=== PATIENT | female | born 1980 | race Caucasian/White ===

== ENCOUNTER 2020-08-04 15:58 | Outpatient (REF) | payer OTHER, SELFPAY | END 2020-08-04 15:59 | disposition home or self-care (01) | LOC: HO.LAB 15:58 | PROVIDERS: PCP Internal Medicine; Visit Provider Internal Medicine | DX: Z20.828 Contact with and (suspected) exposure to other viral communicable diseases (principal) | CPT/HCPCS: C9803; U0003 ==

== ENCOUNTER 2020-09-02 12:11 | Outpatient (REF) | payer OTHER, SELFPAY | END 2020-09-02 12:12 | disposition home or self-care (01) | LOC: HO.LAB 12:11 | PROVIDERS: Visit Provider Internal Medicine | DX: Z20.828 Contact with and (suspected) exposure to other viral communicable diseases (principal) | CPT/HCPCS: 36415; C9803; U0003 ==

== ENCOUNTER 2020-09-22 13:41 | Outpatient (REF) | payer OTHER, SELFPAY | END 2020-09-22 13:42 | disposition home or self-care (01) | LOC: HO.LAB 13:41 | PROVIDERS: Visit Provider Internal Medicine | DX: Z20.822 Contact with and (suspected) exposure to COVID-19 (principal) | CPT/HCPCS: 36415; C9803; U0003 ==

== ENCOUNTER 2020-10-05 14:50 | Outpatient (REF) | payer OTHER, SELFPAY ==
[2020-10-06 09:56] LABS: BV Int Neg Control Negative (Negative); BV Int Pos Control Positive (Positive)
[2020-10-06 22:37] LABS: C. trachomatis RNA TMA NOT DETECTED (NOT DETECTED); N. gonorrhoeae RNA TMA NOT DETECTED (NOT DETECTED)
== END 2020-10-05 14:51 | disposition home or self-care (01) ==
LOC: HO.LAB 14:50
PROVIDERS: PCP Internal Medicine; Visit Provider Advanced Practice Midwife
DX: Z30.433 Encounter for removal and reinsertion of intrauterine contraceptive device (principal); N76.0 Acute vaginitis
CPT/HCPCS: 36415; 58300; 58301; 87480; 87491; 87510; 87591; 87660; J7298

== ENCOUNTER 2020-10-13 09:19 | Outpatient (REF) | payer OTHER, SELFPAY ==
--- NOTE | ~2020-10-13 | XR_ITS ---
EXAMINATION: XR HIP, LEFT CLINICAL INFORMATION: Pain COMPARISON: None TECHNIQUE: Two views of the left hip. FINDINGS: Bone alignment is normal. No fracture or dislocation is seen. The joint space is normal. There is an IUD in the pelvis. Soft tissues are otherwise normal. XR/XR hip LT min 2V IMPRESSION: Normal left hip.
--- NOTE | ~2020-10-13 | XR_ITS ---
EXAMINATION: XR LUMBOSACRAL SPINE CLINICAL INFORMATION: Low back pain COMPARISON: Previous exam September 2018 TECHNIQUE: Three views of the lumbosacral spine. FINDINGS: There is curvature of the lower thoracic and upper lumbar spine to the left. Bone alignment is otherwise normal. No fracture or dislocation is seen. There may be degenerative disc disease at L5-S1. There is lower lumbar spine facet arthritis. XR/XR lumbar spine 2-3V IMPRESSION: Scoliosis. Lower lumbar spine facet arthritis and question mild degenerative disc disease at L5-S1.
--- NOTE | ~2020-10-13 | XR_ITS ---
EXAMINATION: XR SHOULDER, LEFT CLINICAL INFORMATION: Pain COMPARISON: Previous x-ray March 2019 TECHNIQUE: AP external rotation, Grashey, scapular Y, and axillary views of the left shoulder. FINDINGS: Bone alignment is normal. No fracture or dislocation is seen. The glenohumeral joint is normal. There is arthritis at the acromioclavicular joint. Soft tissues are unremarkable. XR/XR shoulder LT min 2V IMPRESSION: Arthritis at the acromioclavicular joint.
[2020-10-13 11:39] LABS: Alanine Aminotransferase 33 U/L (0-31); Albumin Level 4.3 g/dL (3.5-5.0); Alkaline Phosphatase 71 U/L (39-117); Anion Gap 11 (12-20); Aspartate Amino Transferase 25 U/L (5-31); Bilirubin Total 1.2 mg/dL (0.0-1.0); Blood Urea Nitrogen 11 mg/dL (9-16); Calcium 8.9 mg/dL (8.4-10.2); Carbon Dioxide 27 mmol/L (22-29); Chloride 103 mmol/L (96-108); Cholesterol 103 mg/dL; Estimated Glomerular Filt Rate > 60; Glucose Fasting 161 mg/dL (60-99); HDL Cholesterol 38 mg/dL; LDL Cholesterol Calculated 55 mg/dl; Potassium 4.3 mmol/L (3.3-5.1); Sodium 137 mmol/L (135-145); Total Protein 7.6 g/dL (6.5-8.0); Triglycerides 54 mg/dL
[2020-10-13 12:12] LABS: Creatinine Urine 130.28 mg/dL; Microalbum/Creatinine Ratio Ur 26.8 ug/mg cr
[2020-10-13 12:20] LABS: Estimated Average Glucose 192 mg/dL; Hemoglobin A1c % 8.3 %
[2020-10-15 00:16] LABS: C. trachomatis RNA TMA NOT DETECTED (NOT DETECTED); N. gonorrhoeae RNA TMA NOT DETECTED (NOT DETECTED)
== END 2020-10-13 09:20 | disposition home or self-care (01) ==
LOC: HO.LAB 09:19
PROVIDERS: PCP Internal Medicine; Visit Provider Internal Medicine
DX: E11.40 Type 2 diabetes mellitus with diabetic neuropathy, unspecified (principal); E78.5 Hyperlipidemia, unspecified; M25.512 Pain in left shoulder; M25.552 Pain in left hip; M54.5 Low back pain; Z11.3 Encounter for screening for infections with a predominantly sexual mode of transmission; Z11.8 Encounter for screening for other infectious and parasitic diseases
CPT/HCPCS: 36415; 72100; 73030; 73502; 80053; 80061; 82043; 83036; 87491; 87591

== ENCOUNTER 2020-12-10 15:21 | Outpatient (REF) | payer OTHER, SELFPAY | END 2020-12-10 15:22 | disposition home or self-care (01) | LOC: HO.LAB 15:21 | PROVIDERS: Visit Provider Internal Medicine | DX: Z20.822 Contact with and (suspected) exposure to COVID-19 (principal) | CPT/HCPCS: C9803; U0003; U0005 ==

== ENCOUNTER 2020-12-22 14:12 | Outpatient (REF) | payer OTHER, SELFPAY ==
[2020-12-22 14:50] LABS: COVID-19 Test Negative (Negative)
== END 2020-12-22 14:13 | disposition home or self-care (01) ==
LOC: HO.LAB 14:12
PROVIDERS: Visit Provider Internal Medicine
DX: Z20.822 Contact with and (suspected) exposure to COVID-19 (principal)
CPT/HCPCS: 36415; 87635; C9803

== ENCOUNTER → 2021-04-26 11:28 | Outpatient (BNVA) | payer OTHER, SELFPAY | PROVIDERS: PCP Internal Medicine; Visit Provider Surgery Vascular Surgery | DX: I83.11 Varicose veins of right lower extremity with inflammation (principal) | CPT/HCPCS: 99202 ==

== ENCOUNTER 2021-05-11 10:30 | Outpatient (REF) | payer OTHER, SELFPAY ==
--- NOTE | ~2021-05-11 | US_ITS ---
EXAMINATION: BILATERAL LOWER EXTREMITY VENOUS ULTRASOUND (Reflux Exam) CLINICAL INDICATION: This is a 40-year-old female with venous insufficiency and varicose veins. COMPARISON: None. TECHNIQUE: Color flow triplex imaging and compression Doppler was performed to evaluate both the deep and the superficial systems bilaterally. To evaluate the superficial system, the examination was performed in the upright position. Color-flow Doppler ultrasound and compression ultrasound were utilized. In addition, maneuvers were utilized to demonstrate reflux. FINDINGS: 1. DEEP VENOUS ULTRASOUND OF THE RIGHT LOWER EXTREMITY: Common Femoral Vein: Compressible, normal respiratory variation and augmented flow. Femoral vein: Compressible, normal color flow and augmentation. Popliteal Vein: Compressible, normal augmentation. Deep Reflux: There is no evidence of reflux in the deep system in either the common femoral vein or the popliteal vein. . There is no evidence of a Esquivel's cyst. 2. SUPERFICIAL ULTRASOUND WITH DOPPLER OF RIGHT LOWER EXTREMITY GREAT SAPHENOUS VEIN: Saphenofemoral junction: 0.9 cm Mid thigh: 0.8 cm Above knee: 0.4 cm Below knee: 0.3 cm Mid calf: 0.2 cm Ankle: 0.3 cm GSV REFLUX: No evidence of reflux. DUPLICATED GREAT SAPHENOUS VEIN: There is a 0.5 cm duplicated lateral great saphenous vein without reflux. SMALL SAPHENOUS VEIN: Upper: 0.4 cm Lower: 0.2 cm SSV REFLUX: No evidence of reflux. VEIN OF GIACOMINI: None Imaged. PERFORATORS: There is a 0.3 cm commercial or institutional cleaner in the thigh without reflux. There is a 0.2 cm calf commercial or institutional cleaner without reflux. VARICOSITIES: There are 0.3 cm proximal thigh varicose veins without reflux. 3. DEEP VENOUS ULTRASOUND OF THE LEFT LOWER EXTREMITY: Common Femoral Vein: Compressible, normal respiratory variation and augmented flow. Femoral vein: Compressible, normal color flow and augmentation. Popliteal Vein: Compressible, normal augmentation. Deep Reflux: There is no evidence of reflux in the deep system in either the common femoral vein or the popliteal vein. There is no evidence of a Esquivel's cyst. 4. SUPERFICIAL ULTRASOUND WITH DOPPLER OF LEFT LOWER EXTREMITY GREAT SAPHENOUS VEIN: Saphenofemoral junction: 0.6 cm. There is no reflux. Mid thigh: 0.3 cm Above knee: 0.4 cm. There is no reflux at this level and above. Below knee: 0.2 cm. There is an isolated area of reflux with the reflux time of 900 ms. Mid calf: 0.3 cm. There is no reflux at this level and below. Ankle: 0.2 cm GSV REFLUX: There is only a short segment of isolated reflux below the knee. There is no reflux at the junction. DUPLICATED GREAT SAPHENOUS VEIN: There is a 0.7 cm duplicated medial great saphenous vein without reflux. SMALL SAPHENOUS VEIN: Upper: 0.3 cm Lower: 0.3 cm SSV REFLUX: No evidence of reflux. VEIN OF GIACOMINI: None Imaged. PERFORATORS: None Imaged VARICOSITIES: There is a 0.2 cm distal lateral thigh varicose vein with 500 ms of reflux. US/US venous duplex LE BI IMPRESSION: 1. There are patent bilateral great saphenous veins and small saphenous veins and commercial or institutional cleaner's, respectively, without evidence of reflux. 2. There are varicose veins seen bilaterally. On the right that measures 0.3 cm. On the left they measure 0.2 cm. There is no reflux in the varicose veins on the right side.
== END 2021-05-11 10:31 | disposition home or self-care (01) ==
LOC: HO.US 10:30
PROVIDERS: PCP Internal Medicine; Visit Provider Surgery Vascular Surgery
DX: I83.11 Varicose veins of right lower extremity with inflammation (principal)
CPT/HCPCS: 93970

== ENCOUNTER → 2021-05-26 13:56 | Outpatient (BNVA) | payer OTHER, SELFPAY | PROVIDERS: PCP Internal Medicine; Visit Provider Surgery Vascular Surgery | DX: I83.11 Varicose veins of right lower extremity with inflammation (principal) | CPT/HCPCS: 99212 ==

== ENCOUNTER 2021-11-05 10:26 | Emergency (ER) | payer OTHER, SELFPAY ==
[2021-11-05 10:51] VITALS: BP 160/101; PULSE 88; RESP 17; TEMP 36.7; O2SAT 98; BMI 45.3
[2021-11-05] MEDS: Diphth,Pertus(ACell),Tet Adult 0.5 ML SYRINGE IM (11:21)
[2021-11-05] MEDS: Lidocaine HCl 2 % MPF 5 ML VIAL INFILTRATI (11:21)
--- NOTE | 2021-11-05 12:04 | ED.WOUNDLAC ---
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 Tetanus out of date/unknown. Denies injury to the area, numbness, tingling, weakness Onset (ago): hour(s) Related Data Previous Rx's Medication Instructions Recorded blood sugar diagnostic (FreeStyle 1 strip MISCELLANEOUS DAILY #50 11/12/20 Lite Strips) strip lancets 28 gauge (FreeStyle 28 gauge TOPICAL DAILY #100 cap 02/19/21 Lancets) fluticasone propionate 50 1 spray INTRANASAL DAILY 30 Days 06/13/21 mcg/actuation nasal #16 g spray,suspension blood-glucose meter (FreeStyle #1 ea 07/12/21 Lite Meter) pioglitazone 15 mg tablet 15 mg PO DAILY #90 tab 07/26/21 loratadine 10 mg tablet 10 mg PO DAILY #90 tab 08/08/21 ibuprofen 600 mg tablet 600 mg PO Q8H PRN #20 tab 11/04/21 tizanidine 2 mg tablet 2 mg PO BEDTIME PRN #7 tab 11/04/21 Allergies Allergy/AdvReac Type Severity Reaction Status Date / Time No Known Allergies Allergy Verified 11/04/21 14:51 [No Known Allergies*] Review of Systems Review of Systems: Constitutional: No Fever, No Chills ENT/Mouth: No Ear Pain, No Nasal Congestion, No sore throat, No Rhinorrhea, No Swallowing Difficulty Cardiovascular: No Chest Pain, No SOB Respiratory: No Cough Gastrointestinal: No Nausea, No Vomiting, No Diarrhea, No Constipation, No Abdominal pain Genitourinary: No Dysuria, No Urgency, No Flank Pain Musculoskeletal: No joint pain, No Myalgias, No Joint Swelling Skin: +laceration, No rash Neuro: No Weakness, No Numbness, No Paresthesias Yes all other systems are reviewed and are negative [facility] Past Medical History Attestation statement: The following information was validated with the patient. Medical History Allergic rhinitis Diabetes mellitus Left hip pain Left shoulder pain Low back pain Morbid obesity with BMI of 45.0-49.9, adult Venous (peripheral) insufficiency Surgical History History of wisdom tooth extraction Family History Family History Father Kidney disease Diabetes Hypertension Mother Hypertension Brother Hypertension Daughter In good health Son In good health Social History Social History Housing: Apartment Alcohol intake: never Patient Tobacco Use Status: Former Tobacco user Tobacco use type: Cigarette e-Cigarette/Vaping Use: Never Used Second Hand Smoke Exposure: No Advance Directives: No Advance Directives Information Provided: No Patient : No service: No Current occupational status: employed 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 Current occupational exposures/hazards: No Physical Exam Vital Signs: Vital Signs: Last Vital Signs Temp 98.0 F 11/05/21 10:51 Pulse 88 11/05/21 10:51 Resp 17 11/05/21 10:51 BP 160/101 H 11/05/21 10:51 Pulse Ox 98 11/05/21 10:51 BMI result Body Mass Index 45.3 Const: General: cooperative, healthy appearing and no acute distress Orientation/consciousness: patient oriented x3 Limitations: no limitations HENMT: Head: Yes normal to inspection Ears: hearing grossly normal bilaterally General nose exam: Normal external nose present Face and sinus: Yes normal facial exam Eyes: General: appearance normal, both eyes and all related structures EOM: EOMs intact bilaterally Neck: Neck: Yes normal visual inspection and Yes no meningeal signs Resp: Effort & Inspection: normal respiratory effort and no respiratory distress Cardio: Rate: regular rate Peripheral pulses: radial pulses present Skin: Rashes: no rashes Neuro: General: patient oriented x3, tone normal, moves all extremities and no meningeal signs Gait exam (Neuro): Normal gait present Extrem: Other: Left index finger with 2.5 cm laceration to palmar-lateral aspect of DIP. Underlying structures intact. Neurovascularly intact, sensation intact to light touch. FROM intact. 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 On exam hypertensive, NAD, physical exam as above. Will update tetanus and repair wound Plan: Suture repair Differential Diagnosis Differential diagnosis: Likely laceration Medical Records Attestation: I reviewed the patient's medical records. Lab Data Attestation: I reviewed the patient's lab results. Procedures Laceration Laceration 1: Site: hand Side (If applicable): left Size (cm): 2.5 Description: linear Depth: simple, single layer Local Anesthetic: lidocaine 1% (digital block) Amount of anesthesia used (mL): 4 Pre-repair: wound explored and irrigated extensively Skin layer closed with: nylon Size (cm): 4-0 Number of sutures: 6 Technique: simple, interrupted Discharge Plan Discharge Clinical Impression: Finger laceration Patient Disposition: Home, Self-Care Instructions: Finger Laceration (ED) Additional Instructions: Please return to any emergency department or urgent care in 7-10 days to have her stitches taken out. Follow-up with hand surgery as needed If area begins to look infected, is red, there is drainage/pus, you have fever, you develop numbness or tingling please return to the ED immediately Your tetanus was updated today Keep area dry and clean. Apply bacitracin and Neosporin all sutures are in. Once sutures are removed apply anti scar cream like Mederma Prescriptions: No Action blood sugar diagnostic [FreeStyle Lite Strips] Strip 1 strip miscellaneous DAILY Qty: 50 6RF lancets [FreeStyle Lancets] 28 gauge misc 28 gauge topical DAILY Qty: 100 6RF (DME) blood-glucose meter [FreeStyle Lite Meter] Kit See Rx Instructions .Route Qty: 1 0RF Rx Instructions: As directed pioglitazone 15 mg tablet 15 mg PO DAILY Qty: 90 3RF loratadine 10 mg tablet 10 mg PO DAILY Qty: 90 3RF fluticasone propionate 50 mcg/actuation spray,suspension 1 spray intranasal DAILY 30 Days Qty: 16 6RF Rx Instructions: administer into each nostril tizanidine 2 mg tablet 2 mg PO BEDTIME PRN (Reason: muscle spasticity) Qty: 7 0RF ibuprofen 600 mg tablet 600 mg PO Q8H PRN (Reason: pain) Qty: 20 0RF Referrals: ED Physician,Generic [Emergency Provider] - 1 week (7-10 days for suture removal) Anusha Rodrigez MD [Physician] - 1 week
== END 2021-11-05 12:43 | disposition home or self-care (01) ==
PROVIDERS: Emergency Provider Emergency Medicine; PCP Internal Medicine
DX: S61.211A Laceration without foreign body of left index finger without damage to nail, initial encounter (principal); W26.0XXA Contact with knife, initial encounter; E11.9 Type 2 diabetes mellitus without complications; Y93.G1 Activity, food preparation and clean up; Y92.030 Kitchen in apartment as the place of occurrence of the external cause; Y99.9 Unspecified external cause status
CPT/HCPCS: 12001; 90471; 90715; 99283; 99284

== ENCOUNTER → 2021-11-15 10:14 | Outpatient (BNVA) | payer OTHER, SELFPAY | PROVIDERS: PCP Internal Medicine; Visit Provider Physician Assistant | DX: S61.211D Laceration without foreign body of left index finger without damage to nail, subsequent encounter (principal) | CPT/HCPCS: 99202 ==

== ENCOUNTER 2022-01-12 09:06 | Outpatient (REF) | payer OTHER, SELFPAY ==
[2022-01-12 10:22] LABS: Alanine Aminotransferase 20 U/L (0-31); Alkaline Phosphatase 66 U/L (39-117); Anion Gap 10 (12-20); Aspartate Amino Transferase 16 U/L (5-31); Bilirubin Total 1.2 mg/dL (0.0-1.0); Blood Urea Nitrogen 13 mg/dL (9-16); Calcium 9.2 mg/dL (8.4-10.2); Carbon Dioxide 27 mmol/L (22-29); Chloride 105 mmol/L (96-108); Cholesterol 110 mg/dL; Estimated Glomerular Filt Rate > 60; Glucose Fasting 160 mg/dL (60-99); HDL Cholesterol 37 mg/dL; LDL Cholesterol Calculated 64 mg/dl; Potassium 4.6 mmol/L (3.3-5.1); Sodium 137 mmol/L (135-145); Total Protein 7.3 g/dL (6.5-8.0); Triglycerides 48 mg/dL
[2022-01-12 10:38] LABS: Creatinine Urine 96.32 mg/dL; Microalbum/Creatinine Ratio Ur 16.6 ug/mg cr
== END 2022-01-12 09:07 | disposition home or self-care (01) ==
LOC: HO.LAB 09:06
PROVIDERS: PCP Internal Medicine; Visit Provider Internal Medicine
DX: E11.9 Type 2 diabetes mellitus without complications (principal); E78.5 Hyperlipidemia, unspecified
CPT/HCPCS: 36415; 80053; 80061; 82043

== ENCOUNTER 2022-08-15 12:19 | Outpatient (REF) | payer OTHER, SELFPAY ==
[2022-08-15 13:03] LABS: IDNOW Serial# 16C4AD1C
[2022-08-15 13:04] LABS: COVID-19 Test Negative (Negative)
== END 2022-08-15 12:20 | disposition home or self-care (01) ==
LOC: HO.LAB 12:19
PROVIDERS: Visit Provider Internal Medicine
DX: Z20.822 Contact with and (suspected) exposure to COVID-19 (principal)
CPT/HCPCS: 87635; C9803

== ENCOUNTER 2022-09-18 11:58 | Emergency (ER) | payer OTHER, SELFPAY ==
[2022-09-18 12:01] VITALS: BP 150/104; PULSE 120; RESP 18; TEMP 35.8; O2SAT 97; BMI 44.9
--- NOTE | 2022-09-18 12:01 | ED.NAVMDI ---
HPI - Nausea/Vomiting/Diarrhea General Chief complaint: Abdominal Pain <SATURNINO Will - Last Filed: 09/18/22 12:05> Stated complaint: Vomiting/Diarrhea <SATURNINO Will - Last Filed: 09/18/22 12:05> Time Seen by Provider: 09/18/22 13:59 <SATURNINO Will - Last Filed: 09/18/22 12:05> Source: patient <Vannessa Hurt MD - Last Filed: 09/18/22 22:55> Mode of arrival: ambulatory <Vannessa Hurt MD - Last Filed: 09/18/22 22:55> Limitations: no limitations <Vannessa Hurt MD - Last Filed: 09/18/22 22:55> History of Present Illness HPI Narrative: Patient comes in the emergency room complaining of nausea vomiting and diarrhea since last night. Patient states that yesterday in the morning, patient took some rice. Patient states that her children were supposed to put it in the Fridge but they left that out and the counter. When patient got back from work, patient did not want to throw it away, patient he did arise and aided. 6 hours later, patient started having nausea vomiting and diarrhea, no fever or chills. Patient complaining of diffuse abdominal cramping, no localized pain. <Vannessa Hurt MD - Last Filed: 09/18/22 22:55> Related Data Home medications: Previous Rx's Medication Instructions Recorded lancets 28 gauge (FreeStyle 28 gauge topical DAILY for 02/19/21 Lancets) diabetes mellitus #100 caps fluticasone propionate 50 1 spray intranasal DAILY 30 days 06/13/21 mcg/actuation nasal #16 grams spray,suspension ibuprofen 600 mg tablet 600 mg PO Q8H PRN pain #20 tabs 11/04/21 blood sugar diagnostic (FreeStyle 1 strip miscellaneous DAILY for 12/26/21 Lite Strips) diabetes mellitus #50 strips blood-glucose meter (FreeStyle #1 ea 05/22/22 Lite Meter kit) lisinopril 5 mg tablet 5 mg PO DAILY 90 days #90 tabs 05/22/22 blood pressure monitor #1 ea 06/20/22 loratadine 10 mg tablet 10 mg PO DAILY #90 tabs 09/04/22 pioglitazone 30 mg tablet 30 mg PO DAILY 90 days #90 tabs 09/04/22 loperamide 2 mg capsule 2 mg PO Q4H PRN loose stool #14 09/18/22 caps ondansetron 4 mg disintegrating 4 mg PO Q6H PRN nausea and 09/18/22 tablet vomiting #14 tabs <SATURNINO Will - Last Filed: 09/18/22 12:05> Allergies/Adverse reactions: Allergies Allergy/AdvReac Type Severity Reaction Status Date / Time No Known Allergies Allergy Verified 09/18/22 12:03 [No Known Allergies*] <SATURNINO Will - Last Filed: 09/18/22 12:05> Review of Systems Review of Systems: Constitutional : No Weight loss, No Fever, No Chills, No Night Sweats, No Fatigue, No Malaise ENT/Mouth : No Hearing loss, No Ear Pain, No Nasal Congestion, No Sinus Pain, No Hoarseness, No sore throat, No Rhinorrhea, No Swallowing Difficulty Eyes: No Eye Pain, No Swelling, No Redness, No Foreign Body, No Discharge, No Vision Changes Cardiovascular : No Chest Pain, No SOB, No Dyspnea on Exertion, No Orthopnea, No Edema, No Palpitations Respiratory : No Cough, No Sputum, No Wheezing, No Smoke Exposure, No Dyspnea Gastrointestinal : Feeling of nausea, vomiting and diarrhea, constipation, no melena, complaining of diffuse abdominal cramping, no localized pain. Genitourinary : no irregular bleeding, No Dysuria, No Urinary Frequency, No Hematuria, No Urinary Incontinence, No Urgency, No Flank Pain, No Urinary Flow Changes, No Hesitancy Musculoskeletal : No joint pain, No Myalgias, No Joint Swelling Skin : No Skin Lesions, No rash Neuro : No Weakness, No Numbness, No Paresthesias, No Loss of Consciousness, No Dizziness, No Headache Psych : No Anxiety/Panic, No Depression, No SI/HI/AH/VH, No Social Issues, Heme/Lymph: No Bruising, No Bleeding,No Lymphadenopathy Endocrine : No Polyuria, No Polydipsia, No Temperature Intolerance <Vannessa Hurt MD - Last Filed: 09/18/22 22:55> [facility] Past Medical History Medical History: Medical History Allergic rhinitis Diabetes mellitus Left hip pain Left shoulder pain Low back pain Morbid obesity with BMI of 45.0-49.9, adult Skin tag Venous (peripheral) insufficiency <SATURNINO Will - Last Filed: 09/18/22 12:05> Surgical History: Surgical History History of wisdom tooth extraction <SATURNINO Will - Last Filed: 09/18/22 12:05> Family History Family History: Family History Father Kidney disease Diabetes Hypertension Mother Hypertension Brother Hypertension Daughter In good health Son In good health <SATURNINO Will - Last Filed: 09/18/22 12:05> Social History Social History: Social History Housing: Apartment Alcohol intake: never Patient Tobacco Use Status: Former Tobacco user Tobacco use type: Cigarette Smoked in Last 30 Days: No e-Cigarette/Vaping Use: Never Used Second Hand Smoke Exposure: No Use of substances other than those prescribed or required for medical reasons: No Advance Directives: No Advance Directives Information Provided: Yes service: No Current occupational status: employed 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 Current occupational exposures/hazards: No Cognitive needs: No Hearing needs: No Vision needs: Yes <SATURNINO Will - Last Filed: 09/18/22 12:05> Physical Exam Vital Signs: Vital Signs: Last Vital Signs Temp 98.1 F 09/18/22 14:05 Pulse 106 H 09/18/22 14:05 Resp 18 09/18/22 14:05 BP 127/83 09/18/22 14:05 Pulse Ox 96 09/18/22 14:05 O2 Del Method 09/18/22 14:05 BMI result Body Mass Index 44.9 <SATURNINO Will - Last Filed: 09/18/22 12:05> Vital Signs: Last Vital Signs Temp 98.1 F 09/18/22 14:05 Pulse 106 H 09/18/22 14:05 Resp 18 09/18/22 14:05 BP 127/83 09/18/22 14:05 Pulse Ox 96 09/18/22 14:05 O2 Del Method 09/18/22 14:05 BMI result Body Mass Index 44.9 <Vannessa Hurt MD - Last Filed: 09/18/22 22:55> Const: Other: Appearance: Alert. Oriented X3. No acute distress. Well appearing Eyes: Pupils equal, round and reactive to light. ENT: Pharynx normal. Neck: Normal inspection. Neck supple. No lymph nodes noted. No crepitus CVS: Normal heart rate and rhythm. Pulses normal. Normal S1 and S2 Respiratory: No respiratory distress. Breath sounds normal. No Wheezing. No rales Abdomen: Soft and nontender. No rigidity. No distention. Skin: Skin warm and dry. Normal skin color. Normal skin turgor. Extremities: No lower extremity edema. No Lacerations. No Rash Neuro: Oriented X 3. No motor deficit. No sensory deficit. Moving all extremities. No slurred speech. CN 2 through 12 grossly intact Psych: calm, cooperative, normal affect <Vannessa Hutr MD - Last Filed: 09/18/22 22:55> Course Course Course Narrative: RME - 42 yo female with history of HTN, DM who presents to the ER with acute onset of nausea, vomiting, multiple episodes of watery, yellow diarrhea and diffuse abdominal pain that started this morning after eating shrimp fried rice yesterday. No blood in her stool. Unable to hold anything down this morning. Will get labs, stool studies if able and treat with IVF and Zofran. <SATURNINO Will - Last Filed: 09/18/22 12:05> Medications Administered Discontinued Medications Generic Name Dose Route Start Last Admin Trade Name Leandroq PRN Reason Stop Dose Admin Sodium Chloride 1,000 mls @ 999 mls/hr 09/18/22 12:15 09/18/22 14:29 Ns IVCONT 09/18/22 13:15 999 mls/hr .Q1H1M RONNY Administration Loperamide HCl 4 mg 09/18/22 14:09 09/18/22 14:29 Loperamide Hcl 2 Mg Capsule PO 09/18/22 14:10 4 mg ONCE ONE Administration Ondansetron HCl 4 mg 09/18/22 12:02 09/18/22 14:29 Ondansetron Hcl 4 Mg/2 Ml Vial IVPUSH 09/18/22 12:03 4 mg ONCE ONE Administration <SATURNINO Will - Last Filed: 09/18/22 12:05> Medications Administered Discontinued Medications Generic Name Dose Route Start Last Admin Trade Name Danie PRN Reason Stop Dose Admin Sodium Chloride 1,000 mls @ 999 mls/hr 09/18/22 12:15 09/18/22 14:29 Ns IVCONT 09/18/22 13:15 999 mls/hr .Q1H1M RONNY Administration Loperamide HCl 4 mg 09/18/22 14:09 09/18/22 14:29 Loperamide Hcl 2 Mg Capsule PO 09/18/22 14:10 4 mg ONCE ONE Administration Ondansetron HCl 4 mg 09/18/22 12:02 09/18/22 14:29 Ondansetron Hcl 4 Mg/2 Ml Vial IVPUSH 09/18/22 12:03 4 mg ONCE ONE Administration <Vannessa Hurt MD - Last Filed: 09/18/22 22:55> Medical Decision Making Medical Decision Making MDM Narrative: -given the patient's story, patient likely has an infection with bacillus cereus, which is self-limited. Patient will likely have symptoms for approximately 24 hours and then self resolved. -patient receiving IV fluids, Zofran, loperamide -on physical exam, abdominal exam is benign, no imaging indicated at this time. <Vannessa Hurt MD - Last Filed: 09/18/22 22:55> Lab Data Result Diagrams: 09/18/22 12:11 09/18/22 12:11 <SATURNINO Will - Last Filed: 09/18/22 12:05> Labs: Lab Results 09/18/22 09/18/22 Range/Units 12:11 12:11 WBC 20.7 H (4.8-10.8) X10*3/uL RBC 5.86 H (4.20-5.50) X10*6/uL Hgb 15.4 (12.0-16.0) g/dl Hct 48.1 H (37.0-47.0) % MCV 82.1 (80.0-98.0) fL MCH 26.3 L (27.0-33.0) pg MCHC 32.0 (31.0-35.0) g/dl RDW 14.8 (11.0-16.0) % Plt Count 307 (160-400) X10*3/uL MPV 9.7 (9.4-12.3) fL Immature Gran % (Auto) 0.5 H (0.0-0.4) % Neut % (Auto) 76.6 H (45-73) % Lymph % (Auto) 12.7 L (20-40) % [place] % (Auto) 8.4 (2-11) % Eos % (Auto) 1.6 (0-4) % Baso % (Auto) 0.2 (0-2) % Lymph # (Auto) 2.6 (1.2-4.9) X10*3/uL [place] # (Auto) 1.7 H (0.1-1.2) X10*3/uL Eos # (Auto) 0.3 (0.0-0.4) X10*3/uL Baso # (Auto) 0.0 (0.0-0.2) X10*3/uL Abs Immat Gran (auto) 0.11 H (0.00-0.03) X10*3/uL Absolute Neuts (auto) 15.8 H (2.0-8.3) x10*3/uL Absolute Nucleated RBC 0.000 (0.0-0.012) X10*3/uL Nucleated RBC % (auto) 0.0 (0.0-0.2) /100WBC Smear Tech's Comments VERIFIED Sodium 138 (135-145) mmol/L Potassium 4.8 (3.3-5.1) mmol/L Chloride 108 (96-108) mmol/L Carbon Dioxide 20 L (22-29) mmol/L Anion Gap 15 (12-20) BUN 15 (9-16) mg/dL Creatinine 0.85 (0.5-1.4) mg/dL Estim Creat Clear Calc 110.4 Estimated GFR > 60 Random Glucose 188 H (60-115) mg/dL Calcium 9.7 (8.4-10.2) mg/dL Magnesium 1.8 (1.6-2.6) mg/dL Total Bilirubin 1.5 H (0.0-1.0) mg/dL Direct Bilirubin 0.5 (0.0-0.5) mg/dL AST 16 (5-31) U/L ALT 19 (0-31) U/L Alkaline Phosphatase 81 (39-117) U/L Total Protein 8.2 H (6.5-8.0) g/dL Albumin 4.6 (3.5-5.0) g/dL <SATURNINO Will - Last Filed: 09/18/22 12:05> Lab Results 09/18/22 09/18/22 Range/Units 12:11 12:11 WBC 20.7 H (4.8-10.8) X10*3/uL RBC 5.86 H (4.20-5.50) X10*6/uL Hgb 15.4 (12.0-16.0) g/dl Hct 48.1 H (37.0-47.0) % MCV 82.1 (80.0-98.0) fL MCH 26.3 L (27.0-33.0) pg MCHC 32.0 (31.0-35.0) g/dl RDW 14.8 (11.0-16.0) % Plt Count 307 (160-400) X10*3/uL MPV 9.7 (9.4-12.3) fL Immature Gran % (Auto) 0.5 H (0.0-0.4) % Neut % (Auto) 76.6 H (45-73) % Lymph % (Auto) 12.7 L (20-40) % [place] % (Auto) 8.4 (2-11) % Eos % (Auto) 1.6 (0-4) % Baso % (Auto) 0.2 (0-2) % Lymph # (Auto) 2.6 (1.2-4.9) X10*3/uL [place] # (Auto) 1.7 H (0.1-1.2) X10*3/uL Eos # (Auto) 0.3 (0.0-0.4) X10*3/uL Baso # (Auto) 0.0 (0.0-0.2) X10*3/uL Abs Immat Gran (auto) 0.11 H (0.00-0.03) X10*3/uL Absolute Neuts (auto) 15.8 H (2.0-8.3) x10*3/uL Absolute Nucleated RBC 0.000 (0.0-0.012) X10*3/uL Nucleated RBC % (auto) 0.0 (0.0-0.2) /100WBC Smear Tech's Comments VERIFIED Sodium 138 (135-145) mmol/L Potassium 4.8 (3.3-5.1) mmol/L Chloride 108 (96-108) mmol/L Carbon Dioxide 20 L (22-29) mmol/L Anion Gap 15 (12-20) BUN 15 (9-16) mg/dL Creatinine 0.85 (0.5-1.4) mg/dL Estim Creat Clear Calc 110.4 Estimated GFR > 60 Random Glucose 188 H (60-115) mg/dL Calcium 9.7 (8.4-10.2) mg/dL Magnesium 1.8 (1.6-2.6) mg/dL Total Bilirubin 1.5 H (0.0-1.0) mg/dL Direct Bilirubin 0.5 (0.0-0.5) mg/dL AST 16 (5-31) U/L ALT 19 (0-31) U/L Alkaline Phosphatase 81 (39-117) U/L Total Protein 8.2 H (6.5-8.0) g/dL Albumin 4.6 (3.5-5.0) g/dL <Vannessa Hurt MD - Last Filed: 09/18/22 22:55> Discharge Plan Discharge Clinical Impression: Bacillus cereus food poisoning <SATURNINO Will - Last Filed: 09/18/22 12:05> Patient Disposition: Home, Self-Care <SATURNINO Will - Last Filed: 09/18/22 12:05> Instructions: Acute Nausea and Vomiting (ED) <SATURNINO Will - Last Filed: 09/18/22 12:05> Additional Instructions: Please follow-up with your primary care physician tomorrow. If you have any worsening or new symptoms, please return to the emergency room or call 911 <SATURNINO Will - Last Filed: 09/18/22 12:05> Prescriptions: New ondansetron 4 mg tablet,disintegrating 4 mg PO Q6H PRN (Reason: nausea and vomiting) Qty: 14 0RF loperamide 2 mg capsule 2 mg PO Q4H PRN (Reason: loose stool) Qty: 14 0RF Rx Instructions: administer after each loose stool until symptoms controlled; do not exceed 8 mg per 24 hrs No Action lancets [FreeStyle Lancets] 28 gauge misc 28 gauge topical DAILY Qty: 100 6RF FreeStyle Lite Strips Strip 1 strip miscellaneous DAILY Qty: 50 6RF (DME) blood pressure monitor Kit See Rx Instructions .Route Qty: 1 0RF Rx Instructions: As directed loratadine 10 mg tablet 10 mg PO DAILY Qty: 90 3RF pioglitazone 30 mg tablet 30 mg PO DAILY 90 Days Qty: 90 1RF lisinopril 5 mg tablet 5 mg PO DAILY 90 Days Qty: 90 1RF (DME) blood-glucose meter [FreeStyle Lite Meter] Kit See Rx Instructions .Route Qty: 1 0RF Rx Instructions: As directed fluticasone propionate 50 mcg/actuation spray,suspension 1 spray intranasal DAILY 30 Days Qty: 16 6RF Rx Instructions: administer into each nostril ibuprofen 600 mg tablet 600 mg PO Q8H PRN (Reason: pain) Qty: 20 0RF <SATURNINO Will - Last Filed: 09/18/22 12:05> Stand Alone Forms: Work/School Release <SATURNINO Will - Last Filed: 09/18/22 12:05> Interventions: ED Discharge Assessment Last Done: 09/18/22 16:24 <SATURNINO Will - Last Filed: 09/18/22 12:05> Discharge Date/Time: 09/18/22 16:25 <SATURNINO Will - Last Filed: 09/18/22 12:05>
[2022-09-18 12:20] LABS: Basophils Percent Auto 0.2 % (0-2); Eosinophils Absolute Auto 0.3 X10*3/uL (0.0-0.4); Eosinophils Percent Auto 1.6 % (0-4); Hematocrit 48.1 % (37.0-47.0); Hemoglobin 15.4 g/dl (12.0-16.0); Imm Gran Abs Auto 0.11 X10*3/uL (0.00-0.03); Imm Gran Pct Auto 0.5 % (0.0-0.4); Lymphocytes Absolute Auto 2.6 X10*3/uL (1.2-4.9); Lymphocytes Percent Auto 12.7 % (20-40); MANUAL DIFF FLAG SCAN; Mean Corpuscular Hemoglobin 26.3 pg (27.0-33.0); Mean Corpuscular Volume 82.1 fL (80.0-98.0); Mean Platelet Volume 9.7 fL (9.4-12.3); Monocytes Absolute Auto 1.7 X10*3/uL (0.1-1.2); Monocytes Percent Auto 8.4 % (2-11); Neutrophils Absolute Auto 15.8 x10*3/uL (2.0-8.3); Neutrophils Percent Auto 76.6 % (45-73); Platelet Count 307 X10*3/uL (160-400); Red Blood Count 5.86 X10*6/uL (4.20-5.50); Red Cell Distribution Width 14.8 % (11.0-16.0); SCAN SMEAR FLAG 1; White Blood Count 20.7 X10*3/uL (4.8-10.8)
[2022-09-18 12:40] LABS: SLIDE REVIEW VERIFIED
[2022-09-18 12:45] LABS: Alanine Aminotransferase 19 U/L (0-31); Albumin Level 4.6 g/dL (3.5-5.0); Alkaline Phosphatase 81 U/L (39-117); Anion Gap 15 (12-20); Aspartate Amino Transferase 16 U/L (5-31); Bilirubin Direct 0.5 mg/dL (0.0-0.5); Bilirubin Total 1.5 mg/dL (0.0-1.0); Blood Urea Nitrogen 15 mg/dL (9-16); Calcium 9.7 mg/dL (8.4-10.2); Carbon Dioxide 20 mmol/L (22-29); Chloride 108 mmol/L (96-108); Creatinine Clr Calc Pharmacy 110.4; Estimated Glomerular Filt Rate > 60; Glucose Random 188 mg/dL (60-115); Magnesium 1.8 mg/dL (1.6-2.6); Potassium 4.8 mmol/L (3.3-5.1); Sodium 138 mmol/L (135-145); Total Protein 8.2 g/dL (6.5-8.0)
[2022-09-18 14:05] VITALS: BP 127/83; PULSE 106; RESP 18; TEMP 36.7; O2SAT 96
--- NOTE | 2022-09-18 14:09 | ED_ITS ---
HPI - Abdominal Pain General Chief Complaint: Abdominal Pain Stated Complaint: Vomiting/Diarrhea Time Seen by Provider: 09/18/22 13:59 Related Data Previous Rx's Medication Instructions Recorded lancets 28 gauge (FreeStyle 28 gauge topical DAILY for 02/19/21 Lancets) diabetes mellitus #100 caps fluticasone propionate 50 1 spray intranasal DAILY 30 days 06/13/21 mcg/actuation nasal #16 grams spray,suspension ibuprofen 600 mg tablet 600 mg PO Q8H PRN pain #20 tabs 11/04/21 blood sugar diagnostic (FreeStyle 1 strip miscellaneous DAILY for 12/26/21 Lite Strips) diabetes mellitus #50 strips blood-glucose meter (FreeStyle #1 ea 05/22/22 Lite Meter kit) lisinopril 5 mg tablet 5 mg PO DAILY 90 days #90 tabs 05/22/22 blood pressure monitor #1 ea 06/20/22 loratadine 10 mg tablet 10 mg PO DAILY #90 tabs 09/04/22 pioglitazone 30 mg tablet 30 mg PO DAILY 90 days #90 tabs 09/04/22 loperamide 2 mg capsule 2 mg PO Q4H PRN loose stool #14 09/18/22 caps ondansetron 4 mg disintegrating 4 mg PO Q6H PRN nausea and 09/18/22 tablet vomiting #14 tabs Allergies Allergy/AdvReac Type Severity Reaction Status Date / Time No Known Allergies Allergy Verified 09/18/22 12:03 [No Known Allergies*] [facility] Past Medical History Medical History Allergic rhinitis Diabetes mellitus Left hip pain Left shoulder pain Low back pain Morbid obesity with BMI of 45.0-49.9, adult Skin tag Venous (peripheral) insufficiency Surgical History History of wisdom tooth extraction Family History Family History Father Kidney disease Diabetes Hypertension Mother Hypertension Brother Hypertension Daughter In good health Son In good health Social History Social History Housing: Apartment Alcohol intake: never Patient Tobacco Use Status: Former Tobacco user Tobacco use type: Cigarette Smoked in Last 30 Days: No e-Cigarette/Vaping Use: Never Used Second Hand Smoke Exposure: No Use of substances other than those prescribed or required for medical reasons: No Advance Directives: No Advance Directives Information Provided: Yes service: No Current occupational status: employed 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 Patient has not had any episodes of nausea vomiting or abdominal cramping. -patient was p.o. challenged and tolerated well p.o.. No abdominal pain or vomiting. -physical exam prior to discharge: No abdominal pain on palpation, patient well appearing -discussed with the patient that this infection is self-limited, no antibiotics indicated. Lab Data 09/18/22 12:11 09/18/22 12:11 Labs: Lab Results 09/18/22 09/18/22 Range/Units 12:11 12:11 WBC 20.7 H (4.8-10.8) X10*3/uL RBC 5.86 H (4.20-5.50) X10*6/uL Hgb 15.4 (12.0-16.0) g/dl Hct 48.1 H (37.0-47.0) % MCV 82.1 (80.0-98.0) fL MCH 26.3 L (27.0-33.0) pg MCHC 32.0 (31.0-35.0) g/dl RDW 14.8 (11.0-16.0) % Plt Count 307 (160-400) X10*3/uL MPV 9.7 (9.4-12.3) fL Immature Gran % (Auto) 0.5 H (0.0-0.4) % Neut % (Auto) 76.6 H (45-73) % Lymph % (Auto) 12.7 L (20-40) % [place] % (Auto) 8.4 (2-11) % Eos % (Auto) 1.6 (0-4) % Baso % (Auto) 0.2 (0-2) % Lymph # (Auto) 2.6 (1.2-4.9) X10*3/uL [place] # (Auto) 1.7 H (0.1-1.2) X10*3/uL Eos # (Auto) 0.3 (0.0-0.4) X10*3/uL Baso # (Auto) 0.0 (0.0-0.2) X10*3/uL Abs Immat Gran (auto) 0.11 H (0.00-0.03) X10*3/uL Absolute Neuts (auto) 15.8 H (2.0-8.3) x10*3/uL Absolute Nucleated RBC 0.000 (0.0-0.012) X10*3/uL Nucleated RBC % (auto) 0.0 (0.0-0.2) /100WBC Smear Tech's Comments VERIFIED Sodium 138 (135-145) mmol/L Potassium 4.8 (3.3-5.1) mmol/L Chloride 108 (96-108) mmol/L Carbon Dioxide 20 L (22-29) mmol/L Anion Gap 15 (12-20) BUN 15 (9-16) mg/dL Creatinine 0.85 (0.5-1.4) mg/dL Estim Creat Clear Calc 110.4 Estimated GFR > 60 Random Glucose 188 H (60-115) mg/dL Calcium 9.7 (8.4-10.2) mg/dL Magnesium 1.8 (1.6-2.6) mg/dL Total Bilirubin 1.5 H (0.0-1.0) mg/dL Direct Bilirubin 0.5 (0.0-0.5) mg/dL AST 16 (5-31) U/L ALT 19 (0-31) U/L Alkaline Phosphatase 81 (39-117) U/L Total Protein 8.2 H (6.5-8.0) g/dL Albumin 4.6 (3.5-5.0) g/dL Medications Administered Discontinued Medications Generic Name Dose Route Start Last Admin Trade Name Freq PRN Reason Stop Dose Admin Sodium Chloride 1,000 mls @ 999 mls/hr 09/18/22 12:15 09/18/22 14:29 Ns IVCONT 09/18/22 13:15 999 mls/hr .Q1H1M RONNY Administration Loperamide HCl 4 mg 09/18/22 14:09 09/18/22 14:29 Loperamide Hcl 2 Mg Capsule PO 09/18/22 14:10 4 mg ONCE ONE Administration Ondansetron HCl 4 mg 09/18/22 12:02 09/18/22 14:29 Ondansetron Hcl 4 Mg/2 Ml Vial IVPUSH 09/18/22 12:03 4 mg ONCE ONE Administration Discharge Plan Discharge Clinical Impression: Bacillus cereus food poisoning Patient Disposition: Home, Self-Care Instructions: Acute Nausea and Vomiting (ED) Additional Instructions: Please follow-up with your primary care physician tomorrow. If you have any worsening or new symptoms, please return to the emergency room or call 911 Prescriptions: New ondansetron 4 mg tablet,disintegrating 4 mg PO Q6H PRN (Reason: nausea and vomiting) Qty: 14 0RF loperamide 2 mg capsule 2 mg PO Q4H PRN (Reason: loose stool) Qty: 14 0RF Rx Instructions: administer after each loose stool until symptoms controlled; do not exceed 8 mg per 24 hrs No Action lancets [FreeStyle Lancets] 28 gauge misc 28 gauge topical DAILY Qty: 100 6RF FreeStyle Lite Strips Strip 1 strip miscellaneous DAILY Qty: 50 6RF (DME) blood pressure monitor Kit See Rx Instructions .Route Qty: 1 0RF Rx Instructions: As directed loratadine 10 mg tablet 10 mg PO DAILY Qty: 90 3RF pioglitazone 30 mg tablet 30 mg PO DAILY 90 Days Qty: 90 1RF lisinopril 5 mg tablet 5 mg PO DAILY 90 Days Qty: 90 1RF (DME) blood-glucose meter [FreeStyle Lite Meter] Kit See Rx Instructions .Route Qty: 1 0RF Rx Instructions: As directed fluticasone propionate 50 mcg/actuation spray,suspension 1 spray intranasal DAILY 30 Days Qty: 16 6RF Rx Instructions: administer into each nostril ibuprofen 600 mg tablet 600 mg PO Q8H PRN (Reason: pain) Qty: 20 0RF
[2022-09-18] MEDS: ondansetron HCL 4 MG/2 ML VIAL IVPUSH (14:29)
[2022-09-18] MEDS: 0.9 % Sodium Chloride 1,000 ML 999 ML IVCONT (14:29)
[2022-09-18] MEDS: Loperamide HCl 2 MG CAPSULE 4 MG PO (14:29)
== END 2022-09-18 16:25 | disposition home or self-care (01) ==
PROVIDERS: Physician Assistant; Emergency Provider Emergency Medicine; PCP Internal Medicine
DX: A05.4 Foodborne Bacillus cereus intoxication (principal); E11.9 Type 2 diabetes mellitus without complications; E66.01 Morbid (severe) obesity due to excess calories; Z68.41 Body mass index [BMI] 40.0-44.9, adult; Z87.891 Personal history of nicotine dependence; Z79.899 Other long term (current) drug therapy
CPT/HCPCS: 36415; 80048; 80076; 83735; 85025; 96374; 99284; J2405

== ENCOUNTER 2023-01-24 10:59 | Outpatient (REF) | payer OTHER, SELFPAY ==
[2023-01-24 11:16] LABS: MANUAL DIFF FLAG NO
[2023-01-24 12:59] LABS: Basophils Percent Auto 0.4 % (0-2); Eosinophils Absolute Auto 0.3 X10*3/uL (0.0-0.4); Eosinophils Percent Auto 3.2 % (0-4); Hematocrit 43.8 % (37.0-47.0); Hemoglobin 13.6 g/dl (12.0-16.0); Imm Gran Abs Auto 0.04 X10*3/uL (0.00-0.03); Imm Gran Pct Auto 0.4 % (0.0-0.4); Lymphocytes Percent Auto 33.2 % (20-40); Mean Corpuscular HGB Conc 31.1 g/dl (31.0-35.0); Mean Corpuscular Hemoglobin 25.7 pg (27.0-33.0); Mean Corpuscular Volume 82.8 fL (80.0-98.0); Mean Platelet Volume 10.2 fL (9.4-12.3); Monocytes Absolute Auto 0.8 X10*3/uL (0.1-1.2); Monocytes Percent Auto 8.9 % (2-11); Neutrophils Absolute Auto 4.9 x10*3/uL (2.0-8.3); Neutrophils Percent Auto 53.9 % (45-73); Platelet Count 287 X10*3/uL (160-400); Red Blood Count 5.29 X10*6/uL (4.20-5.50); Red Cell Distribution Width 14.9 % (11.0-16.0); White Blood Count 9.1 X10*3/uL (4.8-10.8)
[2023-01-24 13:39] LABS: Microalbum/Creatinine Ratio Ur 7.7 ug/mg cr
[2023-01-24 13:42] LABS: Alanine Aminotransferase 17 U/L (0-31); Albumin Level 4.1 g/dL (3.5-5.0); Alkaline Phosphatase 68 U/L (39-117); Anion Gap 13 (12-20); Aspartate Amino Transferase 16 U/L (5-31); Bilirubin Total 1.4 mg/dL (0.0-1.0); Blood Urea Nitrogen 14 mg/dL (9-16); Calcium 9.3 mg/dL (8.4-10.2); Carbon Dioxide 26 mmol/L (22-29); Chloride 104 mmol/L (96-108); Cholesterol 110 mg/dL; Estimated Glomerular Filt Rate > 60; Glucose Fasting 128 mg/dL (60-99); HDL Cholesterol 38 mg/dL; LDL Cholesterol Calculated 62 mg/dl; Potassium 4.8 mmol/L (3.3-5.1); Sodium 138 mmol/L (135-145); Total Protein 7.5 g/dL (6.5-8.0); Triglycerides 53 mg/dL
[2023-01-24 13:47] LABS: TSH reflex Free T4 1.73 uIU/mL (0.32-4.0)
[2023-01-24 14:03] LABS: Folate 10.3 ng/mL (> or = 4.0); Vitamin B12 473 pg/mL (200-900)
== END 2023-01-24 11:00 | disposition home or self-care (01) ==
LOC: HO.LAB 10:59
PROVIDERS: PCP Internal Medicine; Visit Provider Nurse Practitioner Family
DX: E78.5 Hyperlipidemia, unspecified (principal); E11.9 Type 2 diabetes mellitus without complications
CPT/HCPCS: 36415; 80053; 80061; 82043; 82306; 82607; 82746; 84443; 85025

== ENCOUNTER 2023-01-29 09:26 | Outpatient (REF) | payer OTHER, SELFPAY ==
--- NOTE | ~2023-01-29 | MM_ITS ---
EXAMINATION: MM SCREENING DIGITAL BREAST TOMOSYNTHESIS, BILATERAL CLINICAL INFORMATION: Screening. Asymptomatic. No prior breast imaging. Age 42. The lifetime risk of breast cancer based on the Tyrer-Cuzick Model is 12%. COMPARISON: None (current study represents initial baseline exam). TECHNIQUE: Digital breast tomosynthesis is performed in both the craniocaudal and mediolateral oblique views along with computer-aided detection (CAD). Synthesized 2D images are generated from the tomosynthesis. Additional left MLO view is provided. FINDINGS: There are scattered areas of fibroglandular density (ACR BI-RADS breast composition Category b). There are no significant masses, abnormal calcifications, or other abnormalities. No architectural abnormality. The axilla and skin contours are unremarkable. MM/MM tomosynthesis screening BI IMPRESSION: No mammographic evidence of malignancy. ASSESSMENT: BI-RADS 1: Negative RECOMMENDATION: Routine annual mammography screening. This patient's information was entered into a reminder system with a target due date for their next mammogram.
== END 2023-01-29 09:27 | disposition home or self-care (01) ==
LOC: HO.MAMMO 09:26
PROVIDERS: PCP Internal Medicine; Visit Provider Internal Medicine
DX: Z12.31 Encounter for screening mammogram for malignant neoplasm of breast (principal)
CPT/HCPCS: 77063; 77067

== ENCOUNTER 2023-06-25 13:52 | Outpatient (AMB) | payer OTHER, SELFPAY ==
--- NOTE | 2023-06-25 13:55 | A.OFFPC_ITS ---
Vital Signs 06/25/23 13:56 Height 5 ft 4 in Weight 269 lb BMI 46.2 BP 134/86 Blood Pressure Location Lt brachial Position Sitting Pulse 83 Pulse Source Pulse Oximeter Pulse Oximetry (%) 97 Oxygen Delivery Method Room Air Intake Visit Reasons: 4M Follow up on DM Intake Note: Patient here for a 4 month folow up DM Insulation Nozzleman Required: No Accompanied by: Self / Same As Patient Allergies No Known Allergies [No Known Allergies*] Allergy (Verified 06/25/23 14:03) Tobacco use date assessed: 01/24/23 Dental Screening Dental Screen Date: 06/25/23 Did you have a dental visit in the last 12 months?: Yes Did you have a dental problem in the last 6 months where you did not have access to dental care?: No Was dental information given to patient?: Patient has dentist HPI HPI Comments History of Present Illness Details 42-year-old female past medical history significant for diabetes mellitus, obesity, low vitamin-D level, left shoulder and left pain and low back pain. Patient Dr. Ratliff presents today for follow-up visit. Hemoglobin A1c 6.7%. Patient continues to report left hip, left shoulder pain and low back pain as well as knee pain discussed trailing diclofenac cream for pain. Patient agreeable prescription sent to patient's pharmacy. discussed fasting lab works however patient reports she does like needles and usually gets labs at her annual exam. Labs deferred at this time. [facility] Medical History Allergic rhinitis Diabetes mellitus Left hip pain Left shoulder pain Low back pain Morbid obesity with BMI of 45.0-49.9, adult Skin tag Venous (peripheral) insufficiency Surgical History History of wisdom tooth extraction Family History Father Kidney disease Diabetes Hypertension Mother Hypertension Brother Hypertension Daughter In good health Son In good health Social History Housing: Apartment Alcohol intake: never Patient Tobacco Use Status: Former Tobacco user Tobacco use type: Cigarette e-Cigarette/Vaping Use: Never Used Second Hand Smoke Exposure: No service: No Current occupational status: employed 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 Jose A Kee, Flora Valdez, Ifeanyi Zamorano and colleagues, with an educational james from [employer]. Review of Systems Const Denies chills, Denies fatigue, Denies fever(s) and Denies poor appetite Eyes Denies no additional complaints ENT Reports Normal hearing present Card Denies chest pain, Denies syncope, Denies rapid heart rate and Denies dyspnea Resp Denies cough and Denies dyspnea GI Denies change in stool character, Denies constipation, Denies diarrhea, Denies nausea and Denies vomiting Denies urinary frequency, Denies dysuria and Denies urinary urgency Neuro Reports Normal hearing present, Denies confusion and Denies syncope Psych Denies confusion Endo Denies fatigue Physical exam (Primary Care) Vital Signs: Last Vital Signs Pulse 83 06/25/23 13:56 BP 134/86 06/25/23 13:56 Pulse Ox 97 06/25/23 13:56 Oxygen Delivery Method Room Air 06/25/23 13:56 BMI result Body Mass Index 46.2 Tobacco/Smoking Status: Tobacco use Status Tobacco use date assessed 01/24/23 06/25/23 14:04 Patient Tobacco Use Status Former Tobacco user 06/25/23 14:04 Tobacco use type Cigarette 06/25/23 14:04 e-Cigarette/Vaping Use Never Used 06/25/23 14:04 Thrive Assessment: Date of Thrive Assessment Date Thrive assessed 01/24/23 06/25/23 14:04 Const General: No confusion Orientation/consciousness: No confusion HENMT Head: Yes normocephalic and Yes atraumatic Eyes Conjunctivae: conjunctivae normal Chest Chest palpation & inspection: normal inspection of the chest Resp Effort & Inspection: normal respiratory effort Auscultation: clear to auscultation bilaterally, no crackles, no rhonchi and no wheezes Cardio Rate: regular rate Rhythm: regular rhythm Heart sounds: S1 normal heart sound present and S2 normal heart sound present GI Inspection: Yes normal to inspection Neuro General: No confusion Cranial nerves: Yes Normal hearing present Extrem General: No edema Office Procedures Flu Questionnaire Does the patient have a severe egg allergy?: No Has the patient ever had any past reaction to a flu shot?: Yes Results AMB Hemoglobin A1c AMB Hemoglobin A1c 6.7 % Last Edit by SHAJI Garcia on 06/25/23 14:0 9 Immunizations flu vacc [id number] 6mos up(PF) 60 mcg(15 mcgx4)/0.5 mL IM syringe Performing Provider: KAMAR Elias [facility] [facility] [place] [facility] Documented (not given) by: SHAJI Garcia on 06/25/23 14:07 Reason Not Given: Patient Refused Results Reviewed Results Reviewed: Laboratory Last Values Hgb A1c (Clinic) 6.7 % (4.0-6.0) H 06/25/23 13:55 Assessment and Plan Assessment & Plan (1) Diabetes mellitus: Code(s): E11.9 - Type 2 diabetes mellitus without complications Qualifiers: Diabetes mellitus complication status: without complication Diabetes mellitus exterminator helper termite insulin use: without exterminator helper termite use Diabetes mellitus type: type 2 Qualified Code(s): E11.9 - Type 2 diabetes mellitus without com plications Plan: Hemoglobin A1c 6.7%. Continue on Actos Patient educated to decrease the amount of carbohydrate intake such as pasta, bread, rice and potatoes are all sugar in addition to the sweet stuff. Remember that fruits are good but they also have sugar. (2) Low vitamin D level: Code(s): R79.89 - Other specified abnormal findings of blood chemistry Plan: Continue on vitamin-D 3. (3) Left shoulder pain: Code(s): M25.512 - Pain in left shoulder Qualifiers: Chronicity: unspecified Qualified Code(s): M25.512 - Pain in left shoulder Plan: Diclofenac cream sent to patient's pharmacy. (4) Essential hypertension: Code(s): I10 - Essential (primary) hypertension Plan: Continue on lisinopril 5 mg daily. Blood pressure goal less than 140/90. Follow low-salt diet and exercise. Plan Follow-up in 6 months. Orders: Orders AMB Hemoglobin A1c 06/25/23 E11.9 - Type 2 diabetes mellitus without complications Influenza [id number] Immunization 10/30/23 Z23 - Encounter for immunization Medications: New diclofenac sodium 1% (Arthritis Pain (diclofenac)) apply to single elbow, wrist or hand; for hand includes palm/fingers/back of hand 2 grams topical QID 100 grams 0RF Coding Level of Care Code Est Pt Level 4 (74048) Diagnoses Type 2 diabetes mellitus without complication, without long-term current use of insulin E11.9 Diabetes mellitus complication status: without complication Diabetes mellitus custodial insulin use: without custodial use Diabetes mellitus type: type 2 Low vitamin D level R79.89 Left shoulder pain, unspecified chronicity M25.512 Chronicity: unspecified Essential hypertension I10
[2023-06-25 13:56] VITALS: BP 134/86; PULSE 83; O2SAT 97; BMI 46.2
== END 2023-06-25 14:18 | disposition home or self-care (01) ==
PROVIDERS: PCP Internal Medicine; Visit Provider Nurse Practitioner Family
DX: E11.9 Type 2 diabetes mellitus without complications (principal)
CPT/HCPCS: 83036; 99214

== ENCOUNTER 2024-01-23 14:50 | Outpatient (AMB) | payer OTHER, SELFPAY ==
--- NOTE | 2024-01-23 15:02 | A.OFFPC_ITS ---
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 Required: No Accompanied by: Self / Same As Patient Allergies No Known Allergies [No Known Allergies*] Allergy (Verified 01/23/24 15:26) Medication List - Last Reconciled 01/23/24 by Virginie Dela Cruz MD blood pressure monitor As directed blood sugar diagnostic (FreeStyle Lite Strips) 1 strip miscellaneous DAILY blood-glucose meter (FreeStyle Lite Meter kit) As directed cholecalciferol (vitamin D3) 50 mcg PO DAILY lancets (FreeStyle Lancets) 28 gauge topical DAILY lisinopril 5 mg PO DAILY 90 days loratadine 10 mg PO DAILY pioglitazone 30 mg PO DAILY 90 days Tobacco use date assessed: 01/23/24 Dental Screening Dental Screen Date: 01/23/24 Did you have a dental visit in the last 12 months?: Yes Did you have a dental problem in the last 6 months where you did not have access to dental care?: No Was dental information given to patient?: Patient has dentist HPI HPI Comments History of Present Illness Details This is a 43-year-old female with diabetes mellitus type 2, hypertension, morbid obesity and low vitamin-D comes today for follow-up on her conditions. A1c elevated and I will add Ozempic. I will also increase Actos from 30 mg to 45 mg. She tried metformin and gave her diarrhea. Blood pressure borderline normal to elevated and blood pressure will be recheck in 3 weeks by nurse navigator. I will increase lisinopril from 5 mg to 10 mg. She is mo rbidly obese with a BMI of 49.1 and was advised to do diet and exercise to reach BMI goal less than 30. Not interested in weight loss surgery at the moment. On vitamin-D supplements for her low vitamin-D. [facility] Medical History Skin tag Allergic rhinitis Morbid obesity with BMI of 45.0-49.9, adult Venous (peripheral) insufficiency Low back pain Left hip pain Left shoulder pain Diabetes mellitus Surgical History History of wisdom tooth extraction Family History Father Kidney disease Diabetes Hypertension Mother Hypertension Brother Hypertension Daughter In good health Son In good health Social History Housing: Apartment Alcohol intake: never Patient Tobacco Use Status: Former Tobacco user Tobacco use type: Cigarette e-Cigarette/Vaping Use: Never Used Second Hand Smoke Exposure: No service: No Current occupational status: employed 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 1. Little interest or pleasure in doing things: not at all 2. Feeling down, depressed, or hopeless: not at all 3. Trouble falling or staying asleep, or sleeping too much: not at all 4. Feeling tired or having little energy: not at all 5. Poor appetite or overeating: not at all 6. Feeling bad about yourself - or that you are a failure or have let yourself or your family down: not at all 7. Trouble concentrating on things, such as reading the newspaper or watching television: not at all 8. Moving or speaking so slowly that other people could have noticed. Or the opposite - being so fidgety or restless that you have been moving around a lot more than usual: not at all 9. Thoughts that you would be better off or of hurting yourself in some way: not at all Total score: 0 Depression Screening Interpretation: Negative Depression Screening Done: Yes 14806 - PHQ-9 Billing: Yes Source: Developed by Drs. Jose A Kee, Flora Valdez, Ifeanyi Zamorano and colleagues, with an educational james from [employer]. Thrive Questionnaire Date Thrive assessed: 01/23/24 I am a: Patient What is your living situation today?: I have a steady place to live Within the past 12 months, did the food you bought not last and you didn't have the money to get more?: Never true Within the past 12 months, did you worry whether your food would run out before you got money to buy more?: Never true Do you have trouble paying for medicines?: No Do you have trouble getting transportation to medical appointments?: No Do you have trouble paying your heating and electricity bill?: No Do you have trouble taking care of your child, family member or friend?: No Do you have trouble with day-to-day activities such as bathing, preparing meals, shopping, managing finances, etc.?: No Are you currently unemployed and looking for a job?: No Are you interested in more education?: No Please select the resources that you would like help with: None Currently or been in a relationship where the following occur: no concerns reported THRIVE Score: 0 AUDIT C Alcohol Use Questionnaire (AUDIT-C) 1. How often do you have a drink containing alcohol?: Never Total Score: 0 MELISSA-7 AMB Questionnaire MELISSA-7 Date MELISSA - 7 assessed: 01/23/24 Feeling nervous, anxious, or on edge: 0 = Not at all Not being able to stop or control worryin = Not at all Worrying too much about different things: 0 = Not at all Trouble relaxin = Not at all Being so restless that it is hard to sit still: 0 = Not at all Becoming easily annoyed or irritable: 0 = Not at all Feeling afraid as if something awful might happen: 0 = Not at all Total MELISSA-7 score (0-4 normal; 5-9 mild; 10-14 moderate; 15-21 severe): 0 Source: Developed by Drs. Jose A Kee, Flora Valdez, Ifeanyi Zamorano and colleagues, with an educational james from [employer]. MELISSA-7 Assessment Billing MELISSA-7 Assessment Tool: MELISSA-7 Assessment 28866 Review of Systems Const All systems reviewed & are unremarkable except as noted in HPI and below Card Denies chest pain at rest, Denies chest pain with activity, Denies edema, Denies irregular heart rhythm, Denies claudication, Denies dyspnea, Denies dyspnea on exertion, Denies orthopnea, Denies paroxysmal nocturnal dyspnea and Denies slow heart rate Resp Denies cough, Denies dyspnea and Denies dyspnea on exertion Physical exam (Primary Care) Vital Signs: Last Vital Signs BP 140/90 H 01/23/24 15:03 BMI result Body Mass Index 49.1 BMI Assessment/Plan discussion: High BMI High, discussed plan: lifestyle, weight reduction, dietary and physical activity Tobacco/Smoking Status: Tobacco use Status Tobacco use date assessed 01/23/24 01/23/24 15:13 Patient Tobacco Use Status Former Tobacco user 01/23/24 15:13 Tobacco use type Cigarette 01/23/24 15:13 e-Cigarette/Vaping Use Never Used 01/23/24 15:13 PHQ-9: PHQ-9 Score PHQ-9: Total score 0 01/23/24 15:29 Depression Screening Interpretation: Negative Thrive Assessment: Date of Thrive Assessment Date Thrive assessed 01/23/24 01/23/24 15:13 Currently or been in a relationship where the following occur: no concerns reported Resp Effort & Inspection: normal respiratory effort Auscultation: clear to auscultation bilaterally Cardio Jugular venous distension: no JVD Rate: regular rate Rhythm: regular rhythm Heart sounds: S1 normal heart sound present and S2 normal heart sound present Extrem General: Yes full ROM Results AMB Hemoglobin A1c AMB Hemoglobin A1c 8.4 % Last Edit by SHAJI Garcia on 01/23/24 15:1 4 Results Reviewed Results Reviewed: Laboratory Last Values Hgb A1c (Clinic) 8.4 % (4.0-6.0) H 01/23/24 15:02 Assessment and Plan Assessment & Plan (1) Diabetes mellitus: Code(s): E11.9 - Type 2 diabetes mellitus without complications Qualifiers: Diabetes mellitus type: type 2 Diabetes mellitus terminal clerk insulin use: without senior living use Diabetes mellitus complication status: without complication Qualified Code(s): E11.9 - Type 2 diabetes mellitus without complications Plan: Increase Actos to 45 mg. Start Ozempic. A1c goal is equal or less than 7%. (2) Morbid obesity with BMI of 45.0-49.9, adult: Code(s): E66.01 - Morbid (severe) obesity due to excess calories; Z68.42 - Body mass index [BMI] 45.0-49.9, adult Plan: Start diet and exercise. BMI goal is less than 30. (3) Essential hypertension: Code(s): I10 - Essential (primary) hypertension Plan: Increase lisinopril from 5 mg to 10 mg. Blood pressure goal is equal or less than 130/80. (4) Low vitamin D level: Code(s): R79.89 - Other specified abnormal findings of blood chemistry Plan: Continue vitamin-D supplements. Orders: Orders Microalbumin, Random (w Creat) Today E11.9 - Type 2 diabetes mellitus without complications Vitamin D 25-OH Total Today E55.9 - Vitamin D deficiency, unspecified AMB Hemoglobin A1c Today E11.9 - Type 2 diabetes mellitus without complications Lipid Panel Today E78.5 - Hyperlipidemia, unspecified Comprehensive [place]. Panel Fast Today E11.9 - Type 2 diabetes mellitus without complications Medications: New lisinopril 10 mg PO DAILY 90 tabs 1RF 90 days semaglutide (Ozempic) for 4 weeks 0.25 mg (0.368 mL) subcut QWEEK 1.472 mL 0RF 4 weeks E11.9 - Type 2 diabetes mellitus without complications pioglitazone 45 mg PO DAILY 90 tabs 1RF 90 days Discontinued lisinopril Discontinued Reason: Patient Completed Course 5 mg PO DAILY 90 days 90 tabs 1RF I10 - Essential (primary) hypertension Coding Level of Care Code Est Pt Level 4 (89665) Complex EM visit Add On G2211 Diagnoses Type 2 diabetes mellitus without complication, without long-term current use of insulin E11.9 Diabetes mellitus type: type 2 Diabetes mellitus terminal clerk insulin use: without terminal clerk use Diabetes mellitus complication status: without complication Morbid obesity with BMI of 45.0-49.9, adult E66.01; Z68.42 Essential hypertension I10 Low vitamin D level R79.89 Additional Codes MELISSA-7 Assessment Billing - MELISSA-7 Assessment Tool: MELISSA-7 Assessment 49093 ([id number]) Time Spent (min) 24
[2024-01-23 15:03] VITALS: BP 140/90; BMI 49.1
[2024-01-23 16:52] VITALS: BP 135/88
== END 2024-01-23 15:44 | disposition home or self-care (01) ==
PROVIDERS: PCP Internal Medicine; Visit Provider Internal Medicine
DX: E11.9 Type 2 diabetes mellitus without complications (principal); E66.01 Morbid (severe) obesity due to excess calories; Z68.42 Body mass index [BMI] 45.0-49.9, adult; I10 Essential (primary) hypertension; R79.89 Other specified abnormal findings of blood chemistry
CPT/HCPCS: 83036; 99214; G2211

== ENCOUNTER 2024-02-13 11:33 | Outpatient (REF) | payer OTHER, SELFPAY ==
[2024-02-13 13:00] LABS: Alanine Aminotransferase 17 U/L (0-31); Alkaline Phosphatase 57 U/L (39-117); Anion Gap 11 (12-20); Aspartate Amino Transferase 15 U/L (5-31); Bilirubin Total 0.9 mg/dL (0.0-1.0); Blood Urea Nitrogen 11 mg/dL (9-16); Calcium 8.8 mg/dL (8.4-10.2); Carbon Dioxide 26 mmol/L (22-29); Chloride 106 mmol/L (96-108); Cholesterol 95 mg/dL (<200); Estimated Glomerular Filt Rate > 60; Glucose Fasting 148 mg/dL (60-99); HDL Cholesterol 35 mg/dL (>40); LDL Cholesterol Calculated 48 mg/dL (<100); Potassium 4.3 mmol/L (3.3-5.1); Sodium 139 mmol/L (135-145); Total Protein 7.5 g/dL (6.5-8.0); Triglycerides 60 mg/dL (<150)
[2024-02-13 13:00] LABS: Microalbum/Creatinine Ratio Ur 9.7 ug/mg cr (<30)
[2024-02-13 13:17] LABS: Vitamin D 25-OH Total 23.5 ng/mL (>30)
== END 2024-02-13 11:34 | disposition home or self-care (01) ==
LOC: HO.LAB 11:33
PROVIDERS: PCP Internal Medicine; Visit Provider Internal Medicine
DX: E11.9 Type 2 diabetes mellitus without complications (principal); E78.5 Hyperlipidemia, unspecified; E55.9 Vitamin D deficiency, unspecified
CPT/HCPCS: 36415; 80053; 80061; 82043; 82306; 82570

== ENCOUNTER 2025-04-03 12:53 | Emergency (ER) | payer OTHER, SELFPAY ==
[2025-04-03 13:05] VITALS: BP 141/71; PULSE 96; RESP 18; TEMP 36.6; O2SAT 97; BMI 47.8
--- NOTE | 2025-04-03 13:09 | ED_ITS ---
HPI - General Adult General Chief complaint: General Medical Stated complaint: Dental Pain Swelling Foot Pain Time Seen by Provider: 04/03/25 13:15 Source: patient Mode of arrival: ambulatory Limitations: no limitations History of Present Illness ED Provider: Azucena Batista PA-C HPI narrative: Patient is a 44 year old assigned female at with a history of DM, varicose veins, and HTN presenting to the emergency department today with left sided upper dental pain and bilateral heel pain. Patient states that when she steps on either of her heels, she has pain that shoots into her feet and into her calves. Patient states that she is also having left upper dental pain for which she called her dentist and they recommended she come into the ER for antibiotics. Patient denies any dizziness, lightheadedness, abdominal pain, nausea, vomiting, fever, chills, blurry vision, double vision, loss of vision, chest pain, difficulty breathing, shortness of breath, back pain, night sweats, pain with urination, increased urinary frequency, increased urinary urgency, blood in her urine or stool, syncope or a near syncopal episode, recent trauma or falls, bowel incontinence, bladder incontinence, or any other complaints at this time. Location: mouth, left, right and lower extremity Relieving factors: none Exacerbating factors: other (pressure on either heel) Associated symptoms: denies other symptoms Treatments prior to arrival: none Related Data Previous Rx's ?Medication ?Instructions ?Recorded lancets 28 gauge (FreeStyle 28 gauge topical DAILY for 02/19/21 Lancets) diabetes mellitus #100 caps blood-glucose meter (FreeStyle #1 ea 05/22/22 Lite Meter kit) blood pressure monitor #1 ea 06/20/22 blood sugar diagnostic (FreeStyle 1 strip miscellaneou s DAILY for 02/07/23 Lite Strips) diabetes mellitus #50 strips pioglitazone 30 mg tablet 30 mg PO DAILY 90 days #90 t abs 09/01/23 semaglutide 0.25 mg or 0.5 mg (2 0.25 mg (0.368 mL) duncan bcut QWEEK 4 01/23/24 mg/3 mL) subcutaneous pen injector weeks #1.472 mL (Ozempic) cholecalciferol (vitamin D3) 50 50 mcg PO DAILY #90 ta bs 05/09/24 mcg (2,000 unit) tablet lisinopril 10 mg tablet 10 mg PO DAILY 90 days #90 t abs 06/17/24 loratadine 10 mg tablet 10 mg PO DAILY #90 tabs 12/19 pioglitazone 45 mg tablet 45 mg PO DAILY 90 days #90 t abs 01/28/25 chlorhexidine gluconate 0.12 % 15 ml buccal BID #118 m L 04/03/25 mouthwash (Peridex) naproxen 500 mg tablet 500 mg PO BID 7 days #14 tab s 04/03/25 penicillin V potassium 500 mg 500 mg PO BID 10 days #2 0 tabs 04/03/25 tablet Allergies Allergy/AdvReac Type Severity Reaction Status Date / Time No Known Allergies (No Known Allergy Verified 04/03/25 13:07 Allergies*) Review of Systems 2 Constitutional: Constitutional: Reports no additional constitutional complaints, Denies chills, Denies fever(s) and Denies night sweats Eyes: Eyes: Reports no additional eye complaints, Denies blurry vision, Denies change in vision, Denies diplopia, Denies eye discharge, Denies loss of vision and Denies eye pain ENT: Denies dizziness Comments: left upper dental pain Cardiovascular: Cardiovascular: Reports no additional cardiovascular complaints, Denies chest pain, Denies lightheadedness, Denies Loss of Consciousness and Denies dyspnea Respiratory: Respiratory: Reports no additional respiratory complaints and Denies dyspnea Gastrointestinal: Gastrointestinal: Reports no additional gastrointestinal complaints, Denies abdominal pain, Denies melena, Denies hematochezia, Denies change in bowel habits and Denies change in stool character Genitourinary: Genitourinary: Denies hematuria, Denies urinary frequency, Denies dysuria, Denies urinary incontinence, Denies urinary hesitancy and Denies urinary urgency Musculoskeletal: Musculoskeletal: Reports no additional musculoskeletal complaints, Denies numbness and Denies tingling Comments: bilateral heel pain Neurologic: Denies dizziness, Denies loss of vision, Denies numbness and Denies tingling Psychiatric: Psychiatric: Reports no additional psychiatric complaints Endocrine: Endocrine: Reports no additional endocrine complaints Hematologic/Lymphatic: Hematologic/Lymphatic: Reports no additional hematologic/lymphatic complaints Allergic/Immunologic: Allergic/Immunologic: Reports no additional allergic/immunologic complaints PMFSH Past Medical History Attestation statement: The following information was validated with the patient. Source: old records reviewed and nursing notes reviewed Medical History Skin tag Allergic rhinitis Morbid obesity with BMI of 45.0-49.9, adult Venous (peripheral) insufficiency Low back pain Left hip pain Left shoulder pain Diabetes mellitus Surgical History History of wisdom tooth extraction Family History Family History Father Kidney disease Diabetes Hypertension Mother Hypertension Brother Hypertension Daughter In good health Son In good health Social History Social History Housing: Apartment Alcohol intake: never Patient Tobacco Use Status: Former Tobacco user Tobacco use type: Cigarette e-Cigarette/Vaping Use: Never Used Second Hand Smoke Exposure: No Advance Directives: No Advance Directives Information Provided: Yes service: No Current occupational status: employed Current occupation: [employer] Current occupational exposures/hazards: No Cognitive needs: No Hearing needs: No Vision needs: Yes Physical Exam ED Vital Signs: Vital Signs - 24 hr 04/03/25 13:05 04/03/25 13:31 Temperature 97.8 F 97.8 F Pulse Rate 96 96 Respiratory Rate 18 18 Blood Pressure 141/71 H 141/71 H Pulse Oximetry 97 97 Oxygen Delivery Method Room Air Room Air BMI result Body Mass Index 47.8 Const General: cooperative, no acute distress, alert and awake Nutritional Appearance: well nourished Orientation/consciousness: patient oriented x3 HENMT Head: Yes normal to inspection and Yes atraumatic Ears: hearing grossly normal bilaterally and external ears normal General nose exam: Normal external nose present, no nasal discharge noted and no epistaxis Face and sinus: Yes normal facial exam, No abrasion and No laceration Mouth: Normal oral and palatal mucosa present, no drooling and no muffled voice Teeth image: 2 1. erythema - minimal swelling, no fluctuance Eyes General: appearance normal, both eyes and all related structures Periorbital: periorbital findings normal Eyelids: Yes eyelids normal Conjunctivae: conjunctivae normal Pupils: Equal, round and reactive pupils present EOM: EOMs intact bilaterally Neck Neck: Yes normal visual inspection and Yes full ROM Resp Effort & Inspection: normal respiratory effort and able to speak in complete sentences Neuro General: patient oriented x3, moves all extremities and CN's II-XI intact bilaterally Cranial nerves: Yes Equal, round and reactive pupils present Cognition (Neuro): normal cognition Extrem General: Yes normal to inspection, Yes full ROM and Yes capillary refill normal Psych Appearance: grossly normal Mental Status: mental status grossly normal Affect: normal affect Attitude: cooperative Thought process: Normal thought process present Thought content: Normal thought content present Insight: Good insight present (Psych) Medical Decision Making Medical Decision Making MDM Narrative: Patient is a 44 year old assigned female at with a history of DM, varicose veins, and HTN presenting to the emergency department today with left sided upper dental pain and bilateral heel pain. Patient's physical exam showed a developing dental infection in the upper left portion of the mouth with no evidence of abscess. Patient's physical exam was otherwise unremarkable. Patient's clinical presentation is most consistent with bilateral plantar fasciitis vs. neuropathy and a left upper dental infection. I explained my physical exam findings to the patient. I answered all questions asked by the patient. I stressed the importance of the patient taking her medication as directed (either prescribed or as the over the counter packaging recommends). I stressed the importance of the patient following up with her primary care provider and the orthopedic team. I stressed the importance of the patient returning to the emergency department immediately if her symptoms were to worsen or if she were to develop any dizziness, shortness of breath, difficulty breathing, chest pain, blurry vision, loss of vision, nausea, vomiting, abdominal pain, fever, chills, back pain, or any other complaints. Patient verbalized agreement and understanding with this treatment plan and discharge. Differential Diagnosis Differential Diagnoses: The differential diagnosis associated with the presentation includes Dental infection Plantar fasciitis Neuropathy Admission/Observation Consideration of admission/observation: Escalation of care including admission/observation considered Patient would have been admitted to the hospital had her clinical presentation warranted hospital admission. Prescription Management I considered prescription management with: Pain Medication (patient prescribed pain medication) and Antibiotic (patient prescribed an antibiotic) Chronic Conditions Patient?s care impacted by: Diabetes Discharge Plan Discharge Clinical Impression: Dental infection, Bilateral plantar fasciitis Patient Disposition: Home, Self-Care Instructions: Dental Abscess (ED), Plantar Fasciitis (ED), Plantar Fasciitis Exercises (ED) Additional Instructions: Follow up with the orthopedic team for your bilateral plantar fasciitis. Take your antibiotic as prescribed and follow up with a dentist. IF you are prescribed medications and/or you are taking over the counter medications - it is very important you continue to do so as prescribed / directed unless told otherwise. Follow up with your primary care provider. Return to the emergency department immediately if your symptoms worsen or if you develop any numbness, tingling, dizziness, shortness of breath, difficulty breathing, chest pain, blurry vision, loss of vision, nausea, vomiting, abdominal pain, fever, chills, back pain, or any other complaints. Dental clinics: [address] [place] [address] [place] [address]: [phone] (there are other locations as well) : phone# for ALL [phone] ?[address] [facility] ?[address] [place] [facility] ?[address] [facility] ?[address] [facility]: phone# for ALL [phone] ?[address] [facility] [address] ?[address] [facility], [facility] ?[address] [facility] [facility] [place] [place]: [phone] [facility]: ?[address] [facility]: [phone] [facility]: ?[address] [facility]: [phone] ?9 ?610 [facility]: [phone] [facility]: ?[address] [facility]: [phone] [facility]: ?[address] [facility]: [phone] [facility]: ?[address] [facility], [place]: [phone] [facility] ?[address] [facility], [place]: [phone] [facility]: ?[address]: [phone] [facility]: ?[address] [facility], [place]: [phone] Please see the information below about our Patient Portal. If you are not yet enrolled in the [facility] Patient Portal, you will receive an enrollment email invitation following your visit to any [facility] setting. You may also self-enroll in the Patient Portal by visiting our website: [email or web address] The following information is required to access the Patient Portal: - Your [facility] Medical Record Number - Your personal home email address (must match what is in your electronic medical record, Registration staff can assist with this) - Name - Date of Capabilities of the Patient Portal: - Message some providers - View upcoming appointments - Access your health summary, medical history, and visit history - View current conditions and allergies - View procedure and lab results - View your medications, including guidelines, side effects, and precautions - Complete pre-appointment questionnaires requested by your provider - Ready summary reports of your office visits and procedures To access the Patient Portal Mobile [employer], follow these directions: - Search [employer] in the [employer] Store or [employer] - Download the Wilber - Search for [facility] - Enter your login/password Prescriptions: New penicillin V potassium 500 mg tablet 500 mg PO BID 10 Days Qty: 20 0RF naproxen 500 mg tablet 500 mg PO BID 7 Days Qty: 14 0RF chlorhexidine gluconate [Peridex] 0.12 % mouthwash 15 ml buccal BID Qty: 118 0RF No Action lancets [FreeStyle Lancets] 28 gauge misc 28 gauge topical DAILY Qty: 100 6RF (DME) blood pressure monitor Kit See Rx Instructions .Route Qty: 1 0RF Rx Instructions: As directed FreeStyle Lite Strips Strip 1 strip miscellaneous DAILY Qty: 50 6RF pioglitazone 30 mg tablet 30 mg PO DAILY 90 Days Qty: 90 1RF cholecalciferol (vitamin D3) 50 mcg (2,000 unit) tablet 50 mcg PO DAILY Qty: 90 1RF lisinopril 10 mg tablet 10 mg PO DAILY 90 Days Qty: 90 1RF pioglitazone 45 mg tablet 45 mg PO DAILY 90 Days Qty: 90 1RF loratadine 10 mg tablet 10 mg PO DAILY Qty: 90 3RF (DME) blood-glucose meter [FreeStyle Lite Meter] Kit See Rx Instructions .Route Qty: 1 0RF Rx Instructions: As directed Ozempic 0.25 mg or 0.5 mg (2 mg/3 mL) pen injector 0.25 mg subcut QWEEK 28 Days Qty: 1.472 0RF Rx Instructions: for 4 weeks Referrals: [facility] [Provider Group] Referral Note: Call to establish and follow up with the orthopedic team. Virginie Dorantes MD [Primary Care Provider, Internal Medicine] Stand Alone Forms: Work/School Release Interventions: ED Discharge Assessment Last Done: 04/03/25 13:31 Discharge Date/Time: 04/03/25 13:31 Print Language: Botswan[place]
[2025-04-03 13:31] VITALS: BP 141/71; PULSE 96; RESP 18; TEMP 36.6; O2SAT 97
== END 2025-04-03 13:31 | disposition home or self-care (01) ==
PROVIDERS: Emergency Provider Emergency Medicine; PCP Internal Medicine
DX: K04.7 Periapical abscess without sinus (principal); M72.2 Plantar fascial fibromatosis; K08.89 Other specified disorders of teeth and supporting structures; M79.672 Pain in left foot; M79.671 Pain in right foot; E11.9 Type 2 diabetes mellitus without complications
CPT/HCPCS: 99282; 99283

== ENCOUNTER 2025-05-21 15:04 | Outpatient (AMB) | payer OTHER, SELFPAY ==
[2025-05-21 15:20] VITALS: BP 136/82; PULSE 96; O2SAT 95; BMI 48.1
--- NOTE | 2025-05-21 15:20 | MHC.PC.OV ---
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 Accompanied by: Self / Same As Patient Allergies No Known Allergies (No Known Allergies*) Allergy (Verified 05/21/25 15:35) Medication List - Last Reconciled 05/21/25 by Virginie Dela Cruz MD blood pressure monitor As directed blood sugar diagnostic (FreeStyle Lite Strips) 1 strip miscellaneous DAILY blood-glucose meter (FreeStyle Lite Meter kit) As directed chlorhexidine gluconate 0.12% (Peridex) 15 mL buccal BID cholecalciferol (vitamin D3) 50 mcg PO DAILY lancets (FreeStyle Lancets) 28 gauge topical DAILY lisinopril 10 mg PO DAILY 90 days loratadine 10 mg PO DAILY naproxen 500 mg PO BID 7 days penicillin V potassium 500 mg PO BID 10 days pioglitazone 30 mg PO DAILY 90 days pioglitazone 45 mg PO DAILY 90 days semaglutide (Ozempic) 0.25 mg (0.368 mL) subcut QWEEK 4 weeks Tobacco use date assessed: 05/21/25 Dental Screening Dental Screen Date: 05/21/25 Did you have a dental visit in the last 12 months?: Yes Did you have a dental problem in the last 6 months where you did not have access to dental care?: No Was dental information given to patient?: Patient has dentist HPI HPI Comments History of Present Illness Details The patient is a 44-year-old female presenting with foot pain and difficulty walking. She reports significant pain in the plantar region and heel, particularly on the right side, which worsens with walking and requires her to lean on objects for support. The pain is described as a weight-like sensation, with occasional tingling in the feet. The patient has a history of diabetic neuropathy, which may contribute to her symptoms, and has not been monitoring her blood glucose levels due to lack of equipment. She also has a history of morbid obesity, affecting her mobility and exercise capacity. She desires to lose weight and improve physical activity but faces challenges due to foot pain and lack of a workout partner. Her current medications include vitamin D, lisinopril, loratadine, and pioglitazone, with a previous denial of Ozempic for diabetes management. A1c not on goal and I will add Ozempic. Family history includes renal disease, necessitating regular renal function monitoring, and she has a previous diagnosis of hypothyroidism requiring monitoring. [facility] Medical History (Updated 05/21/25 @ 15:46 by Virginie Dela Cruz MD) Skin tag Allergic rhinitis Morbid obesity with BMI of 45.0-49.9, adult Venous (peripheral) insufficiency Low back pain Left hip pain Left shoulder pain Diabetes mellitus Surgical History History of wisdom tooth extraction Family History Father Kidney disease Diabetes Hypertension Mother Hypertension Brother Hypertension Daughter In good health Son In good health Social History Housing: Apartment Alcohol intake: never Patient Tobacco Use Status: Former Tobacco user Tobacco use type: Cigarette e-Cigarette/Vaping Use: Never Used Second Hand Smoke Exposure: No service: No Current occupational status: employed 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 1. Little interest or pleasure in doing things: not at all 2. Feeling down, depressed, or hopeless: not at all 3. Trouble falling or staying asleep, or sleeping too much: not at all 4. Feeling tired or having little energy: not at all 5. Poor appetite or overeating: not at all 6. Feeling bad about yourself - or that you are a failure or have let yourself or your family down: not at all 7. Trouble concentrating on things, such as reading the newspaper or watching television: not at all 8. Moving or speaking so slowly that other people could have noticed. Or the opposite - being so fidgety or restless that you have been moving around a lot more than usual: not at all 9. Thoughts that you would be better off or of hurting yourself in some way: not at all Total score: 0 Depression Screening Interpretation: Negative Depression Screening Done: Yes 65624 - PHQ-9 Billing: Yes Source: Developed by Drs. Jose A Kee, Flora Valdez, Ifeanyi Zamorano and colleagues, with an educational james from [employer]. Thrive Questionnaire Date Thrive assessed: 01/23/24 I am a: Patient What is your living situation today?: I have a steady place to live Within the past 12 months, did the food you bought not last and you didn't have the money to get more?: Never true Within the past 12 months, did you worry whether your food would run out before you got money to buy more?: Never true Do you have trouble paying for medicines?: Yes Do you have trouble getting transportation to medical appointments?: Yes Do you have trouble paying your heating and electricity bill?: No Do you have trouble taking care of your child, family member or friend?: No Do you have trouble with day-to-day activities such as bathing, preparing meals, shopping, managing finances, etc.?: No Are you currently unemployed and looking for a job?: No Are you interested in more education?: Yes Please select the resources that you would like help with: Transportation Currently or been in a relationship where the following occur: No concerns reported THRIVE Score: 1 AUDIT C Alcohol Use Questionnaire (AUDIT-C) 1. How often do you have a drink containing alcohol?: Never 3. How often do you have six or more drinks on one occasion?: Never Total Score: 0 Score Reviewed/Action Taken: No MELISSA-7 AMB Questionnaire MELISSA-7 Date MELISSA - 7 assessed: 01/23/24 Feeling nervous, anxious, or on edge: 0 = Not at all Not being able to stop or control worryin = Not at all Worrying too much about different things: 0 = Not at all Trouble relaxin = Not at all Being so restless that it is hard to sit still: 0 = Not at all Becoming easily annoyed or irritable: 0 = Not at all Feeling afraid as if something awful might happen: 0 = Not at all Total MELISSA-7 score (0-4 normal; 5-9 mild; 10-14 moderate; 15-21 severe): 0 Source: Developed by Curry Almanzaret B.W. José Miguel, Ifeanyi Zamorano and colleagues, with an educational james from [employer]. MELISSA-7 Assessment Billing MELISSA-7 Assessment Tool: MELISSA-7 Assessment 38906 Review of Systems Const All systems reviewed & are unremarkable except as noted in HPI and below Card Denies chest pain at rest, Denies chest pain with activity, Denies edema, Denies irregular heart rhythm, Denies claudication, Denies dyspnea, Denies dyspnea on exertion, Denies orthopnea, Denies paroxysmal nocturnal dyspnea and Denies slow heart rate Resp Denies cough, Denies dyspnea and Denies dyspnea on exertion Physical exam (Primary Care) Vital Signs: Last Vital Signs Pulse 96 05/21/25 15:20 BP 136/82 05/21/25 15:20 Pulse Ox 95 05/21/25 15:20 Oxygen Delivery Method Room Air 05/21/25 15:20 BMI result Body Mass Index 48.1 BMI Assessment/Plan discussion: High BMI High, discussed plan: lifestyle, weight reduction, dietary and physical activity Tobacco/Smoking Status: Tobacco use Status Tobacco use date assessed 05/21/25 05/21/25 15:23 Patient Tobacco Use Status Former Tobacco user 05/21/25 15:23 Tobacco use type Cigarette 05/21/25 15:23 e-Cigarette/Vaping Use Never Used 05/21/25 15:23 PHQ-9: PHQ-9 Score PHQ-9: Total score 0 05/21/25 16:15 Depression Screening Interpretation: Negative Thrive Assessment: Date of Thrive Assessment Date Thrive assessed 01/23/24 05/21/25 15:23 Currently or been in a relationship where the following occur: No concerns reported Resp Effort & Inspection: normal respiratory effort Auscultation: clear to auscultation bilaterally Cardio Jugular venous distension: no JVD Rate: regular rate Rhythm: regular rhythm Heart sounds: S1 normal heart sound present and S2 normal heart sound present Extrem General: Yes full ROM Results AMB Hemoglobin A1c AMB Hemoglobin A1c 10.5 % Last Edit by SHAJI Stacy on 05/21/25 16:15 Results Reviewed Results Reviewed: Laboratory Last Values Hgb A1c (Clinic) 10.5 % (4.0-6.0) H 05/21/25 15:49 Coding Level of Care Code Est Pt Level 4 (63088) Complex EM visit Add On G2211 Diagnoses Essential hypertension I10 Type 2 diabetes mellitus without complication, without long-term current use of insulin E11.9 Diabetes mellitus type: type 2 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: without chcf use Diabetes mellitus complication status: without complication Morbid obesity with BMI of 45.0-49.9, adult E66.01; Z68.42 Right foot pain M79.671 Left foot pain M79.672 Additional Codes MELISSA-7 Assessment Billing - MELISSA-7 Assessment Tool: MELISSA-7 Assessment 71373 ([id number]) PHQ-9 - 45745 - PHQ-9 Billing: Yes ([id number]) Time Spent (min) 23 Assessment & Plan Assessment & Plan (1) Essential hypertension: Code(s): I10 - Essential (primary) hypertension Category: Medical (2) Diabetes mellitus: Code(s): E11.9 - Type 2 diabetes mellitus without complications Category: Medical Qualifiers: Diabetes mellitus type: type 2 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: without chcf use Diabetes mellitus complication status: without complication Qualified Code(s): E11.9 - Type 2 diabetes mellitus without complications (3) Morbid obesity with BMI of 45.0-49.9, adult: Code(s): E66.01 - Morbid (severe) obesity due to excess calories; Z68.42 - Body mass index [BMI] 45.0-49.9, adult Category: Medical (4) Right foot pain: Code(s): M79.671 - Pain in right foot Category: Medical (5) Left foot pain: Code(s): M79.672 - Pain in left foot Category: Medical Plan Plan Patient was informed and verbally consented to the use of an ambient scribe for clinic note documentation during this visit. 1. Diabetic Neuropathy Monitor blood glucose levels and consider alternative diabetes management options due to previous denial of Ozempic. Plan for an A1c test to assess current glycemic control. 2. Morbid Obesity Encourage weight management strategies, including potential referral to a weight management program. Recommend exercise with necessary modifications due to foot pain. 3. Vitamin D Deficiency Advise continued vitamin D supplementation. 4. Hypertension Continue lisinopril for blood pressure management. 5. Allergic Rhinitis Continue loratadine for allergy management. 6. Hypothyroidism Plan thyroid function tests to monitor and adjust treatment as necessary. 7. Preventative Care: Renal Function Monitoring Advise regular renal function monitoring due to family history of renal disease. Orders: Orders Lipid Panel Today E78.5 - Hyperlipidemia, unspecified Microalbumin, Random (w Creat) Today R80.9 - Proteinuria, unspecified Vitamin D 25-OH Total Today E55.9 - Vitamin D deficiency, unspecified Comprehensive [place]. Panel Fast Today E11.9 - Type 2 diabetes mellitus without complications AMB Hemoglobin A1c Today Z13.9 - Encounter for screening, unspecified XR foot LT 2V Today M79.672 - Pain in left foot XR foot RT 2V Today M79.671 - Pain in right foot Microalbumin, Random (w Creat) 4 Months R80.9 - Proteinuria, unspecified Comprehensive [place]. Panel Fast 4 Months E11.9 - Type 2 diabetes mellitus without complications Thyroid Stimulating Hormone 4 Months E66.01 - Morbid (severe) obesity due to excess calories, Z68.42 - Body mass index [BMI] 45.0-49.9, adult MM tomosynthesis screening BI Today Z12.31 - Encounter for screening mammogram for malignant neoplasm of breast Thyroid Stimulating Hormone Today E66.01 - Morbid (severe) obesity due to excess calories, Z68.42 - Body mass index [BMI] 45.0-49.9, adult Lipid Panel 4 Months E78.5 - Hyperlipidemia, unspecified Referrals Podiatry Referral M79.671 - Pain in right foot, M79.672 - Pain in left foot Medications: Refilled pioglitazone 45 mg PO DAILY 90 tabs 1RF 90 days cholecalciferol (vitamin D3) 50 mcg PO DAILY 90 tabs 1RF R79.89 - Other specified abnormal findings of blood chemistry blood-glucose meter (FreeStyle Lite Meter kit) As directed 1 ea 0RF E11.9 - Type 2 diabetes mellitus without complications blood sugar diagnostic (FreeStyle Lite Strips) 1 strip miscellaneous DAILY 50 strips 6RF for diabetes mellitus E11.9 - Type 2 diabetes mellitus without complications lisinopril 10 mg PO DAILY 90 tabs 1RF 90 days semaglutide (Ozempic) for 4 weeks 0.25 mg (0.368 mL) subcut QWEEK 1.472 mL 0RF 4 weeks E11.9 - Type 2 diabetes mellitus without complications Discontinued pioglitazone Discontinued Reason: Patient Completed Course 30 mg PO DAILY 90 days 90 tabs 1RF E11.9 - Type 2 diabetes mellitus without complications
== END 2025-05-21 15:51 | disposition home or self-care (01) ==
LOC: HO.HMCH 15:05
PROVIDERS: PCP Internal Medicine; Visit Provider Internal Medicine
DX: I10 Essential (primary) hypertension (principal); E11.9 Type 2 diabetes mellitus without complications; E66.01 Morbid (severe) obesity due to excess calories; Z68.42 Body mass index [BMI] 45.0-49.9, adult; M79.671 Pain in right foot; M79.672 Pain in left foot; Z13.9 Encounter for screening, unspecified

== ENCOUNTER 2025-05-21 15:04 | Outpatient (REF) | payer OTHER, SELFPAY ==
[2025-05-21 17:47] LABS: Alanine Aminotransferase 29 U/L (0-31); Albumin Level 4.2 g/dL (3.5-5.0); Alkaline Phosphatase 71 U/L (39-117); Anion Gap 12 (12-20); Aspartate Amino Transferase 27 U/L (5-31); Blood Urea Nitrogen 14 mg/dL (9-16); Calcium 9.3 mg/dL (8.4-10.2); Carbon Dioxide 26 mmol/L (22-29); Chloride 104 mmol/L (96-108); Cholesterol 105 mg/dL (<200); Estimated Glomerular Filt Rate > 60; HDL Cholesterol 37 mg/dL (>40); Potassium 4.0 mmol/L (3.3-5.1); Sodium 138 mmol/L (135-145); Total Protein 7.5 g/dL (6.5-8.0); Triglycerides 78 mg/dL (<150)
[2025-05-21 18:03] LABS: Thyroid Stimulating Hormone 1.64 uIU/mL (0.32-4.0)
[2025-05-21 18:28] LABS: Microalbum/Creatinine Ratio Ur 10.7 ug/mg cr (<30)
== END 2025-05-21 15:05 | disposition home or self-care (01) ==
LOC: HO.LAB 15:04
PROVIDERS: PCP Internal Medicine; Visit Provider Internal Medicine
DX: E66.01 Morbid (severe) obesity due to excess calories (principal); E11.9 Type 2 diabetes mellitus without complications; E78.5 Hyperlipidemia, unspecified; R80.9 Proteinuria, unspecified; E55.9 Vitamin D deficiency, unspecified; M79.671 Pain in right foot; M79.672 Pain in left foot; Z79.2 Long term (current) use of antibiotics; Z79.85 Long-term (current) use of injectable non-insulin antidiabetic drugs; Z79.899 Other long term (current) drug therapy; Z68.42 Body mass index [BMI] 45.0-49.9, adult
CPT/HCPCS: 36415; 80053; 80061; 82043; 82306; 82570; 83036; 84443; 96127; 99212

== ENCOUNTER 2025-06-22 11:03 | Outpatient (AMB) | payer OTHER, SELFPAY ==
--- NOTE | 2025-06-22 11:13 | MHC.OFFVIS ---
Vital Signs 06/22/25 11:14 Height 5 ft 4 in Weight 275 lb BMI 47.2 Intake Visit Reasons: Bilateral Foot Pain Intake Note: Paty is a 44 year old female who presents today as a new patient for an evaluation of her bilateral foot pain. Patient states the pain has been going on for about 1 year and the pain is located on the plantar aspect of her foot and a stabbing pain in the right heel. She has not tried any treatment at this time however she notes slight relief with compression stockings. Patient was seen at [facility] about 2-3 months ago where she was diagnosed with plantar fasciitis. Allergies No Known Allergies (No Known Allergies*) Allergy (Verified 06/22/25 11:37) HPI Comments Details: The patient is a 44-year-old female with a past history as seen below presenting with bilateral foot pain. The pain has been ongoing for about a year without any preceding injury. The pain is described as stabbing and is present both when at rest and during activity, primarily affecting the bottom of the foot. The patient reports that the pain is more severe on the right side compared to the left. Swelling is noted on the feet, and the patient has tried using compression stockings with minimal relief. The pain is exacerbated by weight-bearing activities and improves slightly with movement. Patient states she notices pain 1st thing in the morning when getting out of bed as well as upon ambulation after prolonged sitting. The patient denies any ankle pain but reports swelling when wearing socks. She denies any previous treatment for this condition. Patient denies any other pedal concerns. [facility] Medical History (Updated 06/22/25 @ 11:26 by Ashley Bernstein DPM) Bilateral plantar fasciitis Calcaneal spur of both feet Bilateral foot pain Skin tag Allergic rhinitis Morbid obesity with BMI of 45.0-49.9, adult Venous (peripheral) insufficiency Low back pain Left hip pain Left shoulder pain Diabetes mellitus Surgical History History of wisdom tooth extraction Family History Father Kidney disease Diabetes Hypertension Mother Hypertension Brother Hypertension Daughter In good health Son In good health Social History Housing: Apartment Alcohol intake: never Patient Tobacco Use Status: Former Tobacco user Tobacco use type: Cigarette e-Cigarette/Vaping Use: Never Used Second Hand Smoke Exposure: No service: No Current occupational status: employed 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 All systems reviewed & are unremarkable except as noted in HPI and below Physical Exam Vital Signs: BMI result Body Mass Index 47.2 Extrem Other: Bilateral lower extremity focused physical exam: Derm: Xerosis of skin noted. No open lesions abrasions or wounds noted. No ecchymosis or discoloration noted. Skin supple and turgor within normal limits. No maceration noted. No clinical signs of infection noted. Vascular: DP/PT pulses mildly palpable. Capillary refill time less than 3 seconds. Temperature gradient warm to warm. Pedal hair absent. No varicosities noted. Edema noted to bilateral lower extremities worse feet. Neuro: Protective sensation is grossly intact. MSK: Pain on palpation to the plantar aspect of the heels worse to the medial calcaneal tubercles, right worse than left. Pain along arches of the feet. Negative windlass mechanism. Pes planus foot type. Antalgic gait noted unassisted. Range of motion of the forefoot hindfoot and ankles within normal limits with no crepitus. No fluctuance noted. Results Reviewed Results Reviewed: Ordered bilateral foot x-rays three-view weight-bearing to be performed prior to next visit. Assessment & Plan Assessment & Plan (1) Bilateral foot pain: Code(s): M79.671 - Pain in right foot; M79.672 - Pain in left foot Category: Medical (2) Calcaneal spur of both feet: Code(s): M77.31 - Calcaneal spur, right foot; M77.32 - Calcaneal spur, left foot Category: Medical (3) Bilateral plantar fasciitis: Code(s): M72.2 - Plantar fascial fibromatosis Category: Medical Plan Patient was informed and verbally consented to the use of an ambient scribe for clinic note documentation during this visit. I discussed with the patient that her symptoms are consistent with plantar fasciitis, which involves inflammation of the plantar fascia causing pain and potential bone spurs. We reviewed the treatment options, starting with a Medrol Dosepak to reduce inflammation, and the importance of stretching exercises to alleviate symptoms. I explained that if symptoms persist, we could consider a night splint, injections, PT, or surgery as a last resort. The patient was informed about the plan to order x-rays to check for bone spurs or fractures. We agreed on a follow-up in three weeks to assess progress and adjust the treatment plan as necessary. - Ordered x-rays to assess for bone spurs or fractures. - Prescribed Medrol Dosepak to reduce inflammation and pain. - Instructed patient on stretching exercises to improve plantar fascia mobility. Provided patient with instructional form. - Advised patient to wear supportive shoe gear and avoid barefoot walking. RTC in 3 weeks. Will perform Diabetic foot exam at this time. Orders: Orders XR Foot Franco 3V 06/22/25 M77.31 - Calcaneal spur, right foot, M77.32 - Calcaneal spur, left foot, M79.671 - Pain in right foot, M79.672 - Pain in left foot Medications: New methylprednisolone (Medrol ([place])) PO PER PKG DIR 21 ea 0RF Plantar Fasciitis M72.2 - Plantar fascial fibromatosis, M77.31 - Calcaneal spur, right foot, M77.32 - Calcaneal spur, left foot, M79.671 - Pain in right foot, M79.672 - Pain in left foot Coding Level of Care Code New Pt Level 4 (15488) Diagnoses Bilateral foot pain M79.671; M79.672 Calcaneal spur of both feet M77.31; M77.32 Bilateral plantar fasciitis M72.2 Time Spent (min) 45
[2025-06-22 11:14] VITALS: BMI 47.2
== END 2025-06-22 11:28 | disposition home or self-care (01) ==
LOC: HO.HPODS 11:04
PROVIDERS: PCP Internal Medicine; Visit Provider Student in an Organized Health Care Education/Training Program
DX: M79.671 Pain in right foot (principal); M79.672 Pain in left foot; M77.31 Calcaneal spur, right foot; M77.32 Calcaneal spur, left foot; M72.2 Plantar fascial fibromatosis
CPT/HCPCS: 99204

== ENCOUNTER → 2025-06-22 11:03 | Outpatient (BNVA) | payer OTHER, SELFPAY | PROVIDERS: PCP Internal Medicine; Visit Provider Student in an Organized Health Care Education/Training Program | DX: M79.671 Pain in right foot (principal); M79.672 Pain in left foot; M77.31 Calcaneal spur, right foot; M77.32 Calcaneal spur, left foot; M72.2 Plantar fascial fibromatosis | CPT/HCPCS: 99202 ==